=== PATIENT | male | born 1960 | race Caucasian/White ===

== ENCOUNTER 2017-09-30 13:19 | Emergency (ER) | payer OTHER ==
[2017-09-30 13:43] VITALS: RESP 18; TEMP 99.4
[2017-09-30 14:04] LABS: Basophils # (A) 0.1 k/uL (0-0.2); Basophils % (A) 1 %; Eosinophils # (A) 0.2 k/uL (0-0.7); Eosinophils % (A) 3 %; HCT 42.1 % (39.0-53.0); HGB 14.2 gm/dL (13.0-17.5); Lymphocytes # (A) 1.7 k/uL (1.0-4.8); Lymphocytes % (A) 20 %; MCH 35.2 pg (25.0-35.0); MCHC 33.8 g/dL (31.0-37.0); Macrocytosis Slight; Mean Platelet Volume 8.3; Monocytes # (A) 0.3 k/uL (0-1.0); Monocytes % (A) 3 %; Neutrophils # (A) 6.1 k/uL (1.3-7.7); Neutrophils % (A) 72 %; Platelet Count 195 k/uL (150-450); RBC 4.05 m/uL (4.30-5.90); RDW 14.8 % (11.5-15.5); WBC 8.5 k/uL (3.8-10.6)
[2017-09-30 14:15] LABS: ALT 26 U/L (21-72); AST 80 U/L (17-59); Albumin 4.3 g/dL (3.5-5.0); Alkaline Phosphatase 91 U/L (38-126); Anion Gap 11 mmol/L; Blood Urea Nitrogen 6 mg/dL (9-20); Carbon Dioxide 27 mmol/L (22-30); Chloride 108 mmol/L (98-107); Glucose 91 mg/dL (74-99); Sodium 146 mmol/L (137-145); Total Bilirubin 0.6 mg/dL (0.2-1.3); Total Protein 7.4 g/dL (6.3-8.2)
[2017-09-30 14:18] LABS: INR 0.9 (<1.2); Partial Thromboplastin Time 23.4 sec (22.0-30.0); Prothrombin Time 9.4 sec (9.0-12.0)
--- NOTE | 2017-09-30 14:27 | XR ---
EXAMINATION TYPE: XR chest 2V DATE OF EXAM: 09/30/2017 COMPARISON: 01/02/2015 TECHNIQUE: PA and lateral views submitted. HISTORY: Shortness of breath FINDINGS: Hyperinflation suggests COPD and there is a calcified granuloma stable in appearance upper lobe. Rib deformity on the right suggest previous trauma. No overt failure or pneumothorax. No definite consoli dation. Linear changes in the right upper lobe are stable likely in the basis of atelectasis or scar. IMPRESSION: 1. Correlate for COPD.
--- NOTE | 2017-09-30 14:27 | XR ---
EXAMINATION TYPE: XR abdomen 2V DATE OF EXAM: 09/30/2017 HISTORY: Pain. Technique: 3 views of the abdomen are submitted. Comparison: None. Findings: There is no convincing evidence of pneumoperitoneum. The Bowel gas pattern is nonspecific and nonobstructive. No sizable air-fluid levels are seen. No mass effects are noted. No renal calcifications are identified. IMPRESSION: 1. Nonspecific nonobstructive bowel gas pattern
[2017-09-30 14:31] LABS: Alcohol 399 mg/dL
[2017-09-30 14:33] LABS: Creatine Kinase 243 U/L (55-170)
[2017-09-30 14:45] LABS: Creatine Kinase MB 1.1 ng/mL (0.0-2.4); Troponin I <0.012 ng/mL (0.000-0.034)
--- NOTE | 2017-09-30 15:13 | ED ---
Abdominal Pain HPI - General Chief Complaint: Abdominal Pain Stated Complaint: SOB Time Seen by Provider: 09/30/17 14:40 Source: patient, RN notes reviewed Mode of arrival: ambulatory Limitations: no limitations - History of Present Illness Initial Comments: This is a 57-year-old male with a history of gastroesophageal reflux who presents with complaints of shortness of breath and some upper abdominal pain for the past 2 weeks he says he had a cough with green phlegm some chills but he works outside inserted very cold recently. No sweats no fever. He does admit to drinking 6-7 beers per day smokes one half pack cigarettes per day. He generally just does not feel well. MD Complaint: abdominal pain - Related Data Previous Rx's Medication Instructions Recorded Amoxicillin/Potassium Clav 1 tab PO Q12HR #20 tab 09/30/17 [Augmentin 875-125 Tablet] Allergies Allergy/AdvReac Type Severity Reaction Status Date / Time No Known Allergies Allergy Verified 09/30/17 15:18 Review of Systems ROS Statement: Those systems with pertinent positive or pertinent negative responses have been documented in the HPI. ROS Other: All systems not noted in ROS Statement are negative. Past Medical History Past Medical History: Pneumonia History of Any Multi-Drug Resistant Organisms: None Reported Past Surgical History: No Surgical Hx Reported Additional Past Surgical History / Comment(s): RT HAND MIDDLE FINGER SX- BROKE KNUCKLE Past Anesthesia/Blood Transfusion Reactions: No Reported Reaction Past Psychological History: Depression Smoking Status: Current every day smoker Past Alcohol Use History: Daily Past Drug Use History: Marijuana - Past Family History Father Additional Family Medical History / Comment(s): SHINGLES. AGE 88 DON'T KNOW ANY OTHER HS Mother Additional Family Medical History / Comment(s): AGE 95 FROM OLD AGE Sister(s) Family Medical History: Cancer Additional Family Medical History / Comment(s): FROM BREAST CANCER. General Exam - General Exam Comments Initial Comments: This a well-developed well-nourished awake alert oriented times female he does have the smell of alcohol conjoiners on his breath Limitations: no limitations General appearance: alert, in no apparent distress Head exam: Present: atraumatic, normocephalic, normal inspection Eye exam: Present: normal appearance, PERRL, EOMI. Absent: scleral icterus, conjunctival injection, periorbital swelling ENT exam: Present: normal exam, mucous membranes moist Neck exam: Present: normal inspection. Absent: tenderness, meningismus, lymphadenopathy Respiratory exam: Present: decreased breath sounds. Absent: respiratory distress, wheezes, rales, rhonchi, stridor Cardiovascular Exam: Present: regular rate, normal rhythm, normal heart sounds. Absent: systolic murmur, diastolic murmur, rubs, gallop, clicks GI/Abdominal exam: Present: soft, tenderness (Mild epigastric tenderness palpation no guarding rebound masses or bruits), normal bowel sounds. Absent: distended, guarding, rebound, rigid Rectal exam: Present: deferred Extremities exam: Present: normal inspection, full ROM, normal capillary refill. Absent: tenderness, pedal edema, joint swelling, calf tenderness Back exam: Present: normal inspection Neurological exam: Present: alert, oriented X3, CN II-XII intact Psychiatric exam: Present: normal affect, normal mood Skin exam: Present: warm, dry, intact, normal color. Absent: rash Course Vital Signs 09/30/17 09/30/17 13:38 15:10 Temperature 99.4 F Pulse Rate 97 90 Respiratory 18 18 Rate Blood Pressure 153/91 159/92 O2 Sat by Pulse 98 98 Oximetry - Reevaluation(s) Reevaluation #1: 09/30/17 16:22 The patient does not want to stay in hospital he does have a ride home. He is again awake alert oriented [address] with no difficulty whatsoever. Medical Decision Making - Medical Decision Making Patient was able ambulate around the emergency department without any difficulty and he did leave it was brought back. He is awake alert oriented 3 no focal deficits. He is very cognizant of everything going on around him. Patient doesn't want to stay in the hospital patient will be discharged with a prescription for antibiotics. He was cautioned about smoking and drinking. He did later admit that he had a recent couple shots this morning. - Lab Data Result diagrams: 09/30/17 13:46 09/30/17 13:46 Lab Results 09/30/17 09/30/17 09/30/17 Range/Units 13:46 13:46 13:46 WBC 8.5 (3.8-10.6) k/uL RBC 4.05 L (4.30-5.90) m/uL Hgb 14.2 (13.0-17.5) gm/dL Hct 42.1 (39.0-53.0) % MCV 104.0 H (80.0-100.0) fL MCH 35.2 H (25.0-35.0) pg MCHC 33.8 (31.0-37.0) g/dL RDW 14.8 (11.5-15.5) % Plt Count 195 (150-450) k/uL Neutrophils % 72 % Lymphocytes % 20 % Monocytes % 3 % Eosinophils % 3 % Basophils % 1 % Neutrophils # 6.1 (1.3-7.7) k/uL Lymphocytes # 1.7 (1.0-4.8) k/uL Monocytes # 0.3 (0-1.0) k/uL Eosinophils # 0.2 (0-0.7) k/uL Basophils # 0.1 (0-0.2) k/uL Macrocytosis Slight PT (9.0-12.0) sec INR (<1.2) APTT (22.0-30.0) sec Sodium 146 H (137-145) mmol/L Potassium 4.0 (3.5-5.1) mmol/L Chloride 108 H (98-107) mmol/L Carbon Dioxide 27 (22-30) mmol/L Anion Gap 11 mmol/L BUN 6 L (9-20) mg/dL Creatinine 0.74 (0.66-1.25) mg/dL Est GFR (MDRD) Af Amer >60 (>60 ml/min/1.73 sqM) Est GFR (MDRD) Non-Af >60 (>60 ml/min/1.73 sqM) Glucose 91 (74-99) mg/dL Plasma Lactic Acid Kodi (0.7-2.0) mmol/L Calcium 9.0 (8.4-10.2) mg/dL Total Bilirubin 0.6 (0.2-1.3) mg/dL AST 80 H (17-59) U/L ALT 26 (21-72) U/L Alkaline Phosphatase 91 (38-126) U/L Total Creatine Kinase 243 H (55-170) U/L CK-MB (CK-2) 1.1 (0.0-2.4) ng/mL CK-MB (CK-2) Rel Index 0.5 Troponin I <0.012 (0.000-0.034) ng/mL Total Protein 7.4 (6.3-8.2) g/dL Albumin 4.3 (3.5-5.0) g/dL Amylase (30-110) U/L Lipase (23-300) U/L Serum Alcohol 399 mg/dL Influenza Type A RNA (Not Detectd) Influenza Type B (PCR) (Not Detectd) 09/30/17 09/30/17 09/30/17 Range/Units 13:46 13:46 13:46 WBC (3.8-10.6) k/uL RBC (4.30-5.90) m/uL Hgb (13.0-17.5) gm/dL Hct (39.0-53.0) % MCV (80.0-100.0) fL MCH (25.0-35.0) pg MCHC (31.0-37.0) g/dL RDW (11.5-15.5) % Plt Count (150-450) k/uL Neutrophils % % Lymphocytes % % Monocytes % % Eosinophils % % Basophils % % Neutrophils # (1.3-7.7) k/uL Lymphocytes # (1.0-4.8) k/uL Monocytes # (0-1.0) k/uL Eosinophils # (0-0.7) k/uL Basophils # (0-0.2) k/uL Macrocytosis PT 9.4 (9.0-12.0) sec INR 0.9 (<1.2) APTT 23.4 (22.0-30.0) sec Sodium (137-145) mmol/L Potassium (3.5-5.1) mmol/L Chloride (98-107) mmol/L Carbon Dioxide (22-30) mmol/L Anion Gap mmol/L BUN (9-20) mg/dL Creatinine (0.66-1.25) mg/dL Est GFR (MDRD) Af Amer (>60 ml/min/1.73 sqM) Est GFR (MDRD) Non-Af (>60 ml/min/1.73 sqM) Glucose (74-99) mg/dL Plasma Lactic Acid Kodi 1.3 (0.7-2.0) mmol/L Calcium (8.4-10.2) mg/dL Total Bilirubin (0.2-1.3) mg/dL AST (17-59) U/L ALT (21-72) U/L Alkaline Phosphatase (38-126) U/L Total Creatine Kinase (55-170) U/L CK-MB (CK-2) (0.0-2.4) ng/mL CK-MB (CK-2) Rel Index Troponin I (0.000-0.034) ng/mL Total Protein (6.3-8.2) g/dL Albumin (3.5-5.0) g/dL Amylase (30-110) U/L Lipase (23-300) U/L Serum Alcohol mg/dL Influenza Type A RNA Not Detected (Not Detectd) Influenza Type B (PCR) Not Detected (Not Detectd) 09/30/17 Range/Units 13:46 WBC (3.8-10.6) k/uL RBC (4.30-5.90) m/uL Hgb (13.0-17.5) gm/dL Hct (39.0-53.0) % MCV (80.0-100.0) fL MCH (25.0-35.0) pg MCHC (31.0-37.0) g/dL RDW (11.5-15.5) % Plt Count (150-450) k/uL Neutrophils % % Lymphocytes % % Monocytes % % Eosinophils % % Basophils % % Neutrophils # (1.3-7.7) k/uL Lymphocytes # (1.0-4.8) k/uL Monocytes # (0-1.0) k/uL Eosinophils # (0-0.7) k/uL Basophils # (0-0.2) k/uL Macrocytosis PT (9.0-12.0) sec INR (<1.2) APTT (22.0-30.0) sec Sodium (137-145) mmol/L Potassium (3.5-5.1) mmol/L Chloride (98-107) mmol/L Carbon Dioxide (22-30) mmol/L Anion Gap mmol/L BUN (9-20) mg/dL Creatinine (0.66-1.25) mg/dL Est GFR (MDRD) Af Amer (>60 ml/min/1.73 sqM) Est GFR (MDRD) Non-Af (>60 ml/min/1.73 sqM) Glucose (74-99) mg/dL Plasma Lactic Acid Kdoi (0.7-2.0) mmol/L Calcium (8.4-10.2) mg/dL Total Bilirubin (0.2-1.3) mg/dL AST (17-59) U/L ALT (21-72) U/L Alkaline Phosphatase (38-126) U/L Total Creatine Kinase (55-170) U/L CK-MB (CK-2) (0.0-2.4) ng/mL CK-MB (CK-2) Rel Index Troponin I (0.000-0.034) ng/mL Total Protein (6.3-8.2) g/dL Albumin (3.5-5.0) g/dL Amylase 80 (30-110) U/L Lipase 144 (23-300) U/L Serum Alcohol mg/dL Influenza Type A RNA (Not Detectd) Influenza Type B (PCR) (Not Detectd) - Radiology Data Radiology results: report reviewed (I did review the imaging and reports no acute findings.), image reviewed Disposition Clinical Impression: Tracheobronchitis, Alcohol abuse Disposition: HOME SELF-CARE Condition: Good Instructions: Acute Bronchitis (ED) Prescriptions: Amoxicillin/Potassium Clav [Augmentin 875-125 Tablet] 1 tab PO Q12HR #20 tab Referrals: None,Stated [Primary Care Provider] - 1-2 days
[2017-09-30 15:20] LABS: Amylase 80 U/L (30-110); Lipase 144 U/L (23-300)
[2017-09-30] MEDS ORDERED: AMOXIC-POT CLAV 875MG STARTER 2 EACH TABLET PO STA (16:21)
--- NOTE | 2017-09-30 16:23 | ED ---
Medical Decision Making - Lab Data Result diagrams: 09/30/17 13:46 09/30/17 13:46 Lab Results 09/30/17 09/30/17 09/30/17 Range/Units 13:46 13:46 13:46 WBC 8.5 (3.8-10.6) k/uL RBC 4.05 L (4.30-5.90) m/uL Hgb 14.2 (13.0-17.5) gm/dL Hct 42.1 (39.0-53.0) % MCV 104.0 H (80.0-100.0) fL MCH 35.2 H (25.0-35.0) pg MCHC 33.8 (31.0-37.0) g/dL RDW 14.8 (11.5-15.5) % Plt Count 195 (150-450) k/uL Neutrophils % 72 % Lymphocytes % 20 % Monocytes % 3 % Eosinophils % 3 % Basophils % 1 % Neutrophils # 6.1 (1.3-7.7) k/uL Lymphocytes # 1.7 (1.0-4.8) k/uL Monocytes # 0.3 (0-1.0) k/uL Eosinophils # 0.2 (0-0.7) k/uL Basophils # 0.1 (0-0.2) k/uL Macrocytosis Slight PT (9.0-12.0) sec INR (<1.2) APTT (22.0-30.0) sec Sodium 146 H (137-145) mmol/L Potassium 4.0 (3.5-5.1) mmol/L Chloride 108 H (98-107) mmol/L Carbon Dioxide 27 (22-30) mmol/L Anion Gap 11 mmol/L BUN 6 L (9-20) mg/dL Creatinine 0.74 (0.66-1.25) mg/dL Est GFR (MDRD) Af Amer >60 (>60 ml/min/1.73 sqM) Est GFR (MDRD) Non-Af >60 (>60 ml/min/1.73 sqM) Glucose 91 (74-99) mg/dL Plasma Lactic Acid Kodi (0.7-2.0) mmol/L Calcium 9.0 (8.4-10.2) mg/dL Total Bilirubin 0.6 (0.2-1.3) mg/dL AST 80 H (17-59) U/L ALT 26 (21-72) U/L Alkaline Phosphatase 91 (38-126) U/L Total Creatine Kinase 243 H (55-170) U/L CK-MB (CK-2) 1.1 (0.0-2.4) ng/mL CK-MB (CK-2) Rel Index 0.5 Troponin I <0.012 (0.000-0.034) ng/mL Total Protein 7.4 (6.3-8.2) g/dL Albumin 4.3 (3.5-5.0) g/dL Amylase (30-110) U/L Lipase (23-300) U/L Serum Alcohol 399 mg/dL Influenza Type A RNA (Not Detectd) Influenza Type B (PCR) (Not Detectd) 09/30/17 09/30/17 09/30/17 Range/Units 13:46 13:46 13:46 WBC (3.8-10.6) k/uL RBC (4.30-5.90) m/uL Hgb (13.0-17.5) gm/dL Hct (39.0-53.0) % MCV (80.0-100.0) fL MCH (25.0-35.0) pg MCHC (31.0-37.0) g/dL RDW (11.5-15.5) % Plt Count (150-450) k/uL Neutrophils % % Lymphocytes % % Monocytes % % Eosinophils % % Basophils % % Neutrophils # (1.3-7.7) k/uL Lymphocytes # (1.0-4.8) k/uL Monocytes # (0-1.0) k/uL Eosinophils # (0-0.7) k/uL Basophils # (0-0.2) k/uL Macrocytosis PT 9.4 (9.0-12.0) sec INR 0.9 (<1.2) APTT 23.4 (22.0-30.0) sec Sodium (137-145) mmol/L Potassium (3.5-5.1) mmol/L Chloride (98-107) mmol/L Carbon Dioxide (22-30) mmol/L Anion Gap mmol/L BUN (9-20) mg/dL Creatinine (0.66-1.25) mg/dL Est GFR (MDRD) Af Amer (>60 ml/min/1.73 sqM) Est GFR (MDRD) Non-Af (>60 ml/min/1.73 sqM) Glucose (74-99) mg/dL Plasma Lactic Acid Kodi 1.3 (0.7-2.0) mmol/L Calcium (8.4-10.2) mg/dL Total Bilirubin (0.2-1.3) mg/dL AST (17-59) U/L ALT (21-72) U/L Alkaline Phosphatase (38-126) U/L Total Creatine Kinase (55-170) U/L CK-MB (CK-2) (0.0-2.4) ng/mL CK-MB (CK-2) Rel Index Troponin I (0.000-0.034) ng/mL Total Protein (6.3-8.2) g/dL Albumin (3.5-5.0) g/dL Amylase (30-110) U/L Lipase (23-300) U/L Serum Alcohol mg/dL Influenza Type A RNA Not Detected (Not Detectd) Influenza Type B (PCR) Not Detected (Not Detectd) 09/30/17 Range/Units 13:46 WBC (3.8-10.6) k/uL RBC (4.30-5.90) m/uL Hgb (13.0-17.5) gm/dL Hct (39.0-53.0) % MCV (80.0-100.0) fL MCH (25.0-35.0) pg MCHC (31.0-37.0) g/dL RDW (11.5-15.5) % Plt Count (150-450) k/uL Neutrophils % % Lymphocytes % % Monocytes % % Eosinophils % % Basophils % % Neutrophils # (1.3-7.7) k/uL Lymphocytes # (1.0-4.8) k/uL Monocytes # (0-1.0) k/uL Eosinophils # (0-0.7) k/uL Basophils # (0-0.2) k/uL Macrocytosis PT (9.0-12.0) sec INR (<1.2) APTT (22.0-30.0) sec Sodium (137-145) mmol/L Potassium (3.5-5.1) mmol/L Chloride (98-107) mmol/L Carbon Dioxide (22-30) mmol/L Anion Gap mmol/L BUN (9-20) mg/dL Creatinine (0.66-1.25) mg/dL Est GFR (MDRD) Af Amer (>60 ml/min/1.73 sqM) Est GFR (MDRD) Non-Af (>60 ml/min/1.73 sqM) Glucose (74-99) mg/dL Plasma Lactic Acid Kodi (0.7-2.0) mmol/L Calcium (8.4-10.2) mg/dL Total Bilirubin (0.2-1.3) mg/dL AST (17-59) U/L ALT (21-72) U/L Alkaline Phosphatase (38-126) U/L Total Creatine Kinase (55-170) U/L CK-MB (CK-2) (0.0-2.4) ng/mL CK-MB (CK-2) Rel Index Troponin I (0.000-0.034) ng/mL Total Protein (6.3-8.2) g/dL Albumin (3.5-5.0) g/dL Amylase 80 (30-110) U/L Lipase 144 (23-300) U/L Serum Alcohol mg/dL Influenza Type A RNA (Not Detectd) Influenza Type B (PCR) (Not Detectd) Disposition Clinical Impression: Tracheobronchitis, Alcohol abuse Disposition: HOME SELF-CARE Condition: Good Instructions: Acute Bronchitis (ED), Alcohol Use Disorder (ED), Alcohol Dependence (ED) Prescriptions: Amoxicillin/Potassium Clav [Augmentin 875-125 Tablet] 1 tab PO Q12HR #20 tab Referrals: None,Stated [Primary Care Provider] - 1-2 days
[2017-09-30 17:05] VITALS: BP 145/89; PULSE 94
== END 2017-09-30 17:02 | disposition home or self-care (01) ==
LOC: EC 13:19
DX: J40 Bronchitis, not specified as acute or chronic (principal); F10.10 Alcohol abuse, uncomplicated; R10.13 Epigastric pain; F17.210 Nicotine dependence, cigarettes, uncomplicated
CPT/HCPCS: 36415; 71046; 74019; 80053; 80320; 82150; 82550; 82553; 83605; 83690; 84484; 85025; 85610; 85730; 87040; 87502; 99284

== ENCOUNTER 2017-10-07 12:16 | Emergency (ER) | payer OTHER ==
[2017-10-07 12:33] VITALS: RESP 18
[2017-10-07] MEDS ORDERED: SODIUM CHLORIDE 0.9% 500 ML IV STA (14:35)
--- NOTE | 2017-10-07 14:43 | ED ---
General Adult HPI - General Chief complaint: Abdominal Pain Stated complaint: Abd Pain Time Seen by Provider: 10/07/17 14:00 Source: patient, RN notes reviewed Mode of arrival: ambulatory Limitations: no limitations - History of Present Illness Initial comments: This a 57-year-old male who presents to the emergency department with a past medical history significant for alcoholism and smoking. Patient comes in today stating his abdomen has been painful for one week. Patient states is diffusely painful. Patient states occasionally he will vomit especially if he eats food. Patient states he has had a couple bouts of diarrhea but is not constant. Patient denies any fever chills per patient denies any chest pain difficulty breathing or shortness of breath. Patient states he has yet to vomit today. Patient states he continues to drink but he doesn't think he is drinking as much as he normally does. Patient denies any headache patient denies lightheadedness dizziness or near syncopal episode. Patient denies any dysuria hematuria urinary freaky. Patient denies any recent injury or trauma. - Related Data Previous Rx's Medication Instructions Recorded Amoxicillin/Potassium Clav 1 tab PO Q12HR #20 tab 09/30/17 [Augmentin 875-125 Tablet] Allergies Allergy/AdvReac Type Severity Reaction Status Date / Time No Known Allergies Allergy Verified 10/07/17 14:34 Review of Systems ROS Statement: Those systems with pertinent positive or pertinent negative responses have been documented in the HPI. ROS Other: All systems not noted in ROS Statement are negative. Past Medical History Past Medical History: No Reported History History of Any Multi-Drug Resistant Organisms: None Reported Past Surgical History: No Surgical Hx Reported Additional Past Surgical History / Comment(s): RT HAND MIDDLE FINGER SX- BROKE KNUCKLE Past Anesthesia/Blood Transfusion Reactions: No Reported Reaction Past Psychological History: Depression Smoking Status: Current every day smoker Past Alcohol Use History: Daily Past Drug Use History: Marijuana - Past Family History Father Additional Family Medical History / Comment(s): SHINGLES. AGE 88 DON'T KNOW ANY OTHER HS Mother Additional Family Medical History / Comment(s): AGE 95 FROM OLD AGE Sister(s) Family Medical History: Cancer Additional Family Medical History / Comment(s): FROM BREAST CANCER. General Exam - General Exam Comments Initial Comments: GENERAL: Patient is well-developed and well-nourished. Patient is nontoxic and well- hydrated and is in mild distress. ENT: Neck is soft and supple. No significant lymphadenopathy is noted. Oropharynx is clear. Moist mucous membranes. Neck has full range of motion without eliciting any pain. EYES: The sclera were anicteric and conjunctiva were pink and moist. Extraocular movements were intact and pupils were equal round and reactive to light. Eyelids were unremarkable. PULMONARY: Unlabored respirations. Good breath sounds bilaterally. No audible rales rhonchi or wheezing was noted. CARDIOVASCULAR: There is a regular rate and rhythm without any murmurs gallops or rubs. ABDOMEN: Soft and nontender with normal bowel sounds. No palpable organomegaly was noted. There is no palpable pulsatile mass. SKIN: Skin is clear with no lesions or rashes and otherwise unremarkable. NEUROLOGIC: Patient is alert and oriented x3. Cranial nerves II through XII are grossly intact. Motor and sensory are also intact. Normal speech, volume and content. Symmetrical smile. MUSCULOSKELETAL: Normal extremities with adequate strength and full range of motion. No lower extremity swelling or edema. No calf tenderness. LYMPHATICS: No significant lymphadenopathy is noted PSYCHIATRIC: Normal psychiatric evaluation. Limitations: no limitations Course Vital Signs 10/07/17 10/07/17 10/07/17 12:30 13:51 14:58 Temperature 98 F 97.9 F 98.0 F Pulse Rate 90 71 70 Respiratory 18 18 18 Rate Blood Pressure 173/103 161/110 190/102 O2 Sat by Pulse 97 98 96 Oximetry 10/07/17 17:06 Temperature 97.9 F Pulse Rate 78 Respiratory 18 Rate Blood Pressure 177/110 O2 Sat by Pulse 99 Oximetry Medical Decision Making - Medical Decision Making I went back into the room to reevaluate the patient patient's abdomen was nontender he was resting comfortably reading a book. This is brother will come pick him up. Patient will follow-up with a primary medical care doctor as instructed. - Lab Data Result diagrams: 10/07/17 14:50 10/07/17 14:50 Lab Results 10/07/17 10/07/17 10/07/17 Range/Units 14:50 14:50 14:50 WBC 3.9 (3.8-10.6) k/uL RBC 3.89 L (4.30-5.90) m/uL Hgb 13.7 (13.0-17.5) gm/dL Hct 39.1 (39.0-53.0) % MCV 100.5 H (80.0-100.0) fL MCH 35.1 H (25.0-35.0) pg MCHC 35.0 (31.0-37.0) g/dL RDW 13.5 (11.5-15.5) % Plt Count 61 L D (150-450) k/uL Neutrophils % 50 % Lymphocytes % 40 % Monocytes % 4 % Eosinophils % 2 % Basophils % 1 % Neutrophils # 1.9 (1.3-7.7) k/uL Lymphocytes # 1.5 (1.0-4.8) k/uL Monocytes # 0.2 (0-1.0) k/uL Eosinophils # 0.1 (0-0.7) k/uL Basophils # 0.0 (0-0.2) k/uL Sodium 137 (137-145) mmol/L Potassium 3.7 (3.5-5.1) mmol/L Chloride 98 (98-107) mmol/L Carbon Dioxide 27 (22-30) mmol/L Anion Gap 12 mmol/L BUN 6 L (9-20) mg/dL Creatinine 0.70 (0.66-1.25) mg/dL Est GFR (MDRD) Af Amer >60 (>60 ml/min/1.73 sqM) Est GFR (MDRD) Non-Af >60 (>60 ml/min/1.73 sqM) Glucose 96 (74-99) mg/dL Calcium 9.0 (8.4-10.2) mg/dL Magnesium 1.2 L (1.6-2.3) mg/dL Total Bilirubin 1.1 (0.2-1.3) mg/dL AST 99 H (17-59) U/L ALT 21 (21-72) U/L Alkaline Phosphatase 102 (38-126) U/L Total Protein 7.6 (6.3-8.2) g/dL Albumin 4.3 (3.5-5.0) g/dL Amylase 88 (30-110) U/L Lipase 237 (23-300) U/L Urine Color Yellow Urine Appearance Clear (Clear) Urine pH 6.0 (5.0-8.0) Ur Specific Mcdowell 1.009 (1.001-1.035) Urine Protein Trace H (Negative) Urine Glucose (UA) Negative (Negative) Urine Ketones Negative (Negative) Urine Blood Negative (Negative) Urine Nitrite Negative (Negative) Urine Bilirubin Negative (Negative) Urine Urobilinogen <2.0 (<2.0) mg/dL Ur Leukocyte Esterase Negative (Negative) Serum Alcohol 200 mg/dL Disposition Clinical Impression: Abdominal pain, Alcohol abuse, Thrombocytopenia, Hypertension Disposition: HOME SELF-CARE Condition: Good Instructions: Abdominal Pain (ED), Hypertension (ED) Additional Instructions: Patient is to stop drinking. Patient is to follow-up with primary medical care doctor. Patient should follow -up so he can get an endoscopy. Referrals: None,Stated [Primary Care Provider] - 1-2 days Time of Disposition: 16:47
[2017-10-07 15:14] LABS: Appearance,Urine Clear (Clear); Bilirubin,Urine Negative (Negative); Blood,Urine Negative (Negative); Color,Urine Yellow; Glucose,Urine (UA) Negative (Negative); Ketones,Urine Negative (Negative); Leukocyte Esterase,Urine Negative (Negative); Nitrite,Urine Negative (Negative); Protein,Urine Trace (Negative); Specific Gravity,Urine 1.009 (1.001-1.035); Urobilinogen,Urine <2.0 mg/dL (<2.0)
[2017-10-07 15:24] LABS: ALT 21 U/L (21-72); AST 99 U/L (17-59); Albumin 4.3 g/dL (3.5-5.0); Alkaline Phosphatase 102 U/L (38-126); Amylase 88 U/L (30-110); Anion Gap 12 mmol/L; Blood Urea Nitrogen 6 mg/dL (9-20); Carbon Dioxide 27 mmol/L (22-30); Chloride 98 mmol/L (98-107); Glucose 96 mg/dL (74-99); Magnesium 1.2 mg/dL (1.6-2.3); Potassium 3.7 mmol/L (3.5-5.1); Sodium 137 mmol/L (137-145); Total Bilirubin 1.1 mg/dL (0.2-1.3); Total Protein 7.6 g/dL (6.3-8.2)
[2017-10-07 15:25] LABS: Basophils % (A) 1 %; Eosinophils # (A) 0.1 k/uL (0-0.7); Eosinophils % (A) 2 %; HCT 39.1 % (39.0-53.0); HGB 13.7 gm/dL (13.0-17.5); Lymphocytes # (A) 1.5 k/uL (1.0-4.8); Lymphocytes % (A) 40 %; MCH 35.1 pg (25.0-35.0); MCV 100.5 fL (80.0-100.0); Mean Platelet Volume 8.5; Monocytes # (A) 0.2 k/uL (0-1.0); Monocytes % (A) 4 %; Neutrophils # (A) 1.9 k/uL (1.3-7.7); Neutrophils % (A) 50 %; RBC 3.89 m/uL (4.30-5.90); RDW 13.5 % (11.5-15.5); WBC 3.9 k/uL (3.8-10.6)
[2017-10-07 15:29] LABS: Alcohol 200 mg/dL
[2017-10-07 15:39] LABS: Platelet Count 61 k/uL (150-450)
[2017-10-07 15:48] LABS: Lipase 237 U/L (23-300)
[2017-10-07] MEDS ORDERED: hydrALAZINE HCL 20 MG/ML 1 ML VIAL IVP STA (17:05)
[2017-10-07 17:07] VITALS: PULSE 78; TEMP 97.9
--- NOTE | 2017-10-07 17:08 | XR ---
EXAMINATION TYPE: XR KUB DATE OF EXAM: 10/07/2017 COMPARISON: 09/30/2017 INDICATION: Abdomen pain mid abdomen 1 week TECHNIQUE: Single view abdomen upright view FINDINGS: There is a nonspecific bowel gas pattern. Small bowel loops as well as colon containing air. No suspi cious air-fluid levels or differential air-fluid levels are present. No dilated small bowel loops are evident. Psoas margins are normal. No organomegaly is present. No suspicious calcifications are evident. COMPARISON: There is minimal increased in the small bowel gas compared to prior study IMPRESSION: 1. Nonspecific abdomen.
[2017-10-07 17:30] VITALS: BP 176/93
== END 2017-10-07 17:56 | disposition home or self-care (01) ==
LOC: EC 12:16
DX: R10.84 Generalized abdominal pain (principal); D69.6 Thrombocytopenia, unspecified; F10.10 Alcohol abuse, uncomplicated; I10 Essential (primary) hypertension; R11.10 Vomiting, unspecified; R19.7 Diarrhea, unspecified; F17.200 Nicotine dependence, unspecified, uncomplicated
CPT/HCPCS: 36415; 80053; 82150; 83690; 83735; 85025; 81003; 80320; 74018; 99284; 96374; 96361; J0360

== ENCOUNTER 2018-03-18 23:17 | Emergency (ER) | payer OTHER ==
[2018-03-18 23:50] VITALS: RESP 18
--- NOTE | 2018-03-18 23:52 | ED ---
Fall HPI - General Source: patient, EMS, RN notes reviewed Mode of arrival: EMS Limitations: no limitations <Joslyn Weber - Last Filed: 03/19/18 03:29> <Greg Zabala - Last Filed: 03/19/18 04:10> - General Chief Complaint: Fall Stated Complaint: Fall Time Seen by Provider: 03/18/18 23:25 - History of Present Illness Initial Comments: This is a 57-year-old male who presents to the emergency department with chief complaint of fall injury. Patient states that he was walking on a back road when he tripped once and fell hitting his face. He denies any loss of consciousness, nausea or vomiting, dizziness or headache. Patient does admit to drinking 6 large beers this evening. He denies blood thinner use. He also reports abrasions to his hands in his right elbow. He states he has normal range of motion of all extremities. Patient states that a bystander called EMS and he was transported to the emergency department. Patient denies any other injuries or trauma. (Joslyn Weber) - Related Data Home Medications Medication Instructions Recorded Confirmed No Known Home Medications 03/18/18 03/18/18 Allergies Allergy/AdvReac Type Severity Reaction Status Date / Time No Known Allergies Allergy Verified 03/18/18 23:26 Review of Systems ROS Other: All systems not noted in ROS Statement are negative. <Joslyn Weber - Last Filed: 03/19/18 03:29> ROS Other: All systems not noted in ROS Statement are negative. <Greg Zabala - Last Filed: 03/19/18 04:10> ROS Statement: Those systems with pertinent positive or pertinent negative responses have been documented in the HPI. Past Medical History Past Medical History: No Reported History History of Any Multi-Drug Resistant Organisms: None Reported Past Surgical History: No Surgical Hx Reported Additional Past Surgical History / Comment(s): RT HAND MIDDLE FINGER SX- BROKE KNUCKLE Past Anesthesia/Blood Transfusion Reactions: No Reported Reaction Past Psychological History: Depression Smoking Status: Current every day smoker Past Alcohol Use History: Daily Past Drug Use History: Marijuana - Past Family History Father Additional Family Medical History / Comment(s): SHINGLES. AGE 88 DON'T KNOW ANY OTHER HS Mother Additional Family Medical History / Comment(s): AGE 95 FROM OLD AGE Sister(s) Family Medical History: Cancer Additional Family Medical History / Comment(s): FROM BREAST CANCER. <Joslyn Weber - Last Filed: 03/19/18 03:29> General Exam Limitations: no limitations <Joslyn Weber - Last Filed: 03/19/18 03:29> <Greg Zabala - Last Filed: 03/19/18 04:10> - General Exam Comments Initial Comments: General: Awake and alert, well-developed; in no apparent distress. HEENT: 2 hematomas noted to the forehead, one mid forehead and one right supraorbital. There is an approximately 1.0 cm linear laceration just superior to the lateral aspect of the left eyebrow. Pupils are equal, round and reactive to light. Extraocular movements intact. Oropharynx moist without erythema or exudate. Neck: Supple. Normal ROM. Cardiovascular: Regular rate and rhythm. No murmurs, rubs or gallops. Chest symmetrical. Respiratory: Lungs clear to auscultation bilaterally. No wheezes, rales or rhonchi. Normal respiratory effort with no use of accessory muscles. Musculoskeletal: Normal ROM, no tenderness bilateral upper and lower extremities. Skin: [place], warm and dry. Superficial abrasion noted to the knuckles on the right hand and to the right elbow. Neurological: Alert and oriented x3. CN II-XII grossly intact. Speech is fluent and answers are appropriate. No focal neuro deficits. (Joslyn Weber) Course <Joslyn Weber - Last Filed: 03/19/18 03:29> <Greg Zabala - Last Filed: 03/19/18 04:10> Vital Signs 03/18/18 03/19/18 03/19/18 23:27 00:57 02:35 Temperature 98.1 F 97.4 F L Pulse Rate 70 65 58 L Respiratory 18 18 18 Rate Blood Pressure 150/91 105/57 132/77 O2 Sat by Pulse 97 97 100 Oximetry - Reevaluation(s) Reevaluation #1: At this time, patient complains of right-sided chest pain. On palpation of the right anterior ribs, there is tenderness elicited. Will obtain an EKG and chest x-ray for further evaluation. 03/19/18 02:46 (Joslyn Weber) Reevaluation #2: 03/19/18 03:30 At this time, patient is resting comfortably in bed. Case will be signed over to Dr. Zabala. (Joslyn Weber) Procedures - Laceration Laceration #1 Consent Obtained: verbal consent Indication: laceration Site: face (superior to lateral left eyebrow ) Size (cm): 1 Description: linear Depth: simple, single layer Pre-repair: irrigated extensively, deep structures intact Type of Sutures: other (exofin ) Patient Tolerated Procedure: well, no complications <Joslyn Weber - Last Filed: 03/19/18 03:29> Medical Decision Making - Radiology Data Radiology results: report reviewed, image reviewed <Joslyn Weber - Last Filed: 03/19/18 03:29> <Greg Zabala - Last Filed: 03/19/18 04:10> - Medical Decision Making This is a 57-year-old male who presents to the emergency department with chief complaint of fall injury. Patient was intoxicated, tripped and fell. Patient sustained soft tissue swelling to his frontal scalp, a non-displaced nasal bone fracture and a laceration superior to the left eyebrow. Laceration was cleansed thoroughly and exofin skin adhesive was applied. Patient tolerated well. Patient also sustained abrasions to knuckles and his right elbow. He has normal range of motion of bilateral upper and lower extremities. Computed tomography scan of the brain and C-spine revealed no acute abnormalities. While in the emergency department, patient complained of some right-sided chest pain. Right anterior ribs are tender on palpation. EKG was obtained which revealed normal sinus rhythm without evidence of ST segment elevation or depression. (Joslyn Weber) - EKG Data EKG Comments: 3:13:46. Normal sinus rhythm. Ventricular rate 64 bpm, OK interval 206, QRS duration 80, QT/QTc 440/453. No ST segment elevation or depression. (Jolsyn Weber) - Radiology Data CT brain and C-spine without contrast impression: Cerebral atrophy. No acute intracranial abnormality. Right side soft tissue swelling. Spine no other changes in the cervical spine. No fracture. CT facial bones without contrast impression: Right and left side frontal scalp soft tissue swelling and laceration. Non-displaced nasal bone fracture. Mild maxillary sinusitis. Chest x-ray impression: No active cardiopulmonary disease. Normal heart. (Joslyn Weber) Disposition <Joslyn Weber - Last Filed: 03/19/18 03:29> Is patient prescribed a controlled substance at d/c from ED?: No <Greg Zabala - Last Filed: 03/19/18 04:10> Clinical Impression: Fall, Nasal fracture, Facial laceration, Alcohol intoxication Disposition: HOME SELF-CARE Condition: Good Instructions: Fall Prevention for Older Adults (ED) Referrals: None,Stated [Primary Care Provider] - 1-2 days
--- NOTE | 2018-03-19 00:48 | CT ---
EXAMINATION TYPE: CT brain yg bliss DATE OF EXAM: 03/19/2018 COMPARISON: Head CT scan 01/02/2015 HISTORY: fall CT DLP: 1422.00 mGycm Automated exposure control for dose reduction was used. TECHNIQUE: CT scan of the head and cervical spine are performed without contrast. FINDINGS: There is some cerebral cortical atrophy. There is no mass effect nor midline shift. There is no sign of intracranial hemorrhage. There is right frontal skull Alps soft tissue swelling. The c alvarium is intact. There is some spurring of the endplates at C5-6 C6-7. There is fairly normal alignment of the vertebr a. There is hypertrophic facet arthropathy in the mid cervical spine. The skull base is intact. There is no compression fracture. I see no bony destructive process. IMPRESSION: Cerebral atrophy. No acute intracranial abnormality. Right side soft tissue swelling. Spondylotic changes in the cervical spine. No fracture.
--- NOTE | 2018-03-19 00:50 | CT ---
EXAMINATION TYPE: CT facial bones wo con DATE OF EXAM: 03/19/2018 COMPARISON: HISTORY: fall CT DLP: 624.20 mGycm Automated exposure control for dose reduction was used. TECHNIQUE: CT scan of the sinuses is performed without contrast, axial images are obtained, coronal r eformatted images are also reviewed. FINDINGS: The mandibular ring is intact. Temporomandibular joints appear normal. Zygomatic arches are intact. There is some deformity of the nasal bone consistent with nondisplaced fracture. There is mi ld mucosal thickening in the maxillary sinuses. There is no evidence of blowout fracture. Orbital mar gins are intact. There is no evidence of retro-orbital mass. There is right side frontal soft tissue swelling. There is apparent laceration deformity of the left frontal scalp. The maxilla is intact. IMPRESSION: Right and left side frontal scalp soft tissue swelling and laceration. Nondisplaced nasal bone fracture. Mild maxillary sinusitis.
[2018-03-19] MEDS ORDERED: DIPH,PERTUS(ACELL)TETVAC-LF 0.5 ML VIAL IM ONE (01:00)
[2018-03-19] MEDS ORDERED: TOPICAL SKIN ADHESIVE 1 EACH AMP TOPICAL ONE (02:17)
--- NOTE | 2018-03-19 03:16 | XR ---
EXAMINATION TYPE: XR chest 2V DATE OF EXAM: 03/19/2018 COMPARISON: 09/30/2017 HISTORY: Chest pain TECHNIQUE: Frontal and lateral views of the chest are obtained. FINDINGS: There is no heart failure nor confluent pneumonic infiltrate. There is 5 mm calcified gran uloma in the left lung. There is no pleural effusion. Bony thorax is intact. IMPRESSION: No active cardiopulmonary disease. Normal heart.
[2018-03-19 05:36] VITALS: BP 107/64; PULSE 64; TEMP 97.5
== END 2018-03-19 05:38 | disposition home or self-care (01) ==
LOC: EC 23:17
DX: S02.2XXA Fracture of nasal bones, initial encounter for closed fracture (principal); S01.81XA Laceration without foreign body of other part of head, initial encounter; F10.129 Alcohol abuse with intoxication, unspecified; S00.83XA Contusion of other part of head, initial encounter; S60.511A Abrasion of right hand, initial encounter; S50.311A Abrasion of right elbow, initial encounter; G31.9 Degenerative disease of nervous system, unspecified; J32.0 Chronic maxillary sinusitis; R07.9 Chest pain, unspecified; F17.200 Nicotine dependence, unspecified, uncomplicated; Z98.890 Other specified postprocedural states; Z23 Encounter for immunization; W01.0XXA Fall on same level from slipping, tripping and stumbling without subsequent striking against object, initial encounter; Y93.01 Activity, walking, marching and hiking; Y92.488 Other paved roadways as the place of occurrence of the external cause
CPT/HCPCS: 12011; 70450; 70486; 71046; 72125; 82075; 90471; 90715; 93005; 99284

== ENCOUNTER 2020-08-20 01:53 | Observation (INO) | payer OTHER ==
[2020-08-20] MEDS ORDERED: SODIUM CHLORIDE 0.9% 1,000 ML IV STA (02:04)
[2020-08-20] MEDS ORDERED: hydrALAZINE HCL 20 MG/ML 1 ML VIAL IVP STA (02:05)
--- NOTE | 2020-08-20 02:07 | ED ---
General Adult HPI - General Source: patient, EMS, RN notes reviewed Mode of arrival: ambulatory Limitations: no limitations <Tony Rodriguez - Last Filed: 08/20/20 03:02> <Florian Jerome - Last Filed: 08/20/20 03:54> - General Chief complaint: Dizziness Stated complaint: Weakness, ETOH Time Seen by Provider: 08/20/20 01:56 - History of Present Illness Initial comments: 60-year-old male presents to the emergency room for a chief complaint of dizziness. Patient was apparently drinking with his friends when he started to feel dizzy and they called the ambulance. Patient states the dizziness has since resolved. Patient reports he drinks daily about 5 beers. He states he feels well at this time denying any specific complaints. Patient does have a history of CVA. EMS reports the patient was in atrial fibrillation however has no history. Patient denies any active suicidal thoughts. Patient has no other complaints at this time including shortness of breath, chest pain, abdominal pain, nausea or vomiting, headache, or visual changes. (Tony Rodriguez) - Related Data Home Medications Medication Instructions Recorded Confirmed No Known Home Medications 03/18/18 03/18/18 Allergies Allergy/AdvReac Type Severity Reaction Status Date / Time No Known Allergies Allergy Verified 03/18/18 23:26 Review of Systems ROS Other: All systems not noted in ROS Statement are negative. <Tony Rodriguez - Last Filed: 08/20/20 03:02> ROS Other: All systems not noted in ROS Statement are negative. <Florian Jerome - Last Filed: 08/20/20 03:54> ROS Statement: Those systems with pertinent positive or pertinent negative responses have been documented in the HPI. Past Medical History Past Medical History: CVA/TIA History of Any Multi-Drug Resistant Organisms: None Reported Past Surgical History: No Surgical Hx Reported Additional Past Surgical History / Comment(s): RT HAND MIDDLE FINGER SX- BROKE KNUCKLE Past Anesthesia/Blood Transfusion Reactions: No Reported Reaction Past Psychological History: Depression Smoking Status: Current every day smoker Past Alcohol Use History: Daily Past Drug Use History: Marijuana - Past Family History Father Additional Family Medical History / Comment(s): SHINGLES. AGE 88 DON'T KNOW ANY OTHER HS Mother Additional Family Medical History / Comment(s): AGE 95 FROM OLD AGE Sister(s) Family Medical History: Cancer Additional Family Medical History / Comment(s): FROM BREAST CANCER. <Tony Rodriguez P - Last Filed: 08/20/20 03:02> General Exam Limitations: no limitations General appearance: alert, in no apparent distress Head exam: Present: atraumatic, normocephalic, normal inspection Eye exam: Present: normal appearance, PERRL, EOMI. Absent: scleral icterus, conjunctival injection, periorbital swelling ENT exam: Present: normal exam, mucous membranes moist Neck exam: Present: normal inspection, full ROM. Absent: tenderness, meningismus, lymphadenopathy Respiratory exam: Present: normal lung sounds bilaterally. Absent: respiratory distress, wheezes, rales, rhonchi, stridor Cardiovascular Exam: Present: regular rate, normal rhythm, normal heart sounds. Absent: systolic murmur, diastolic murmur, rubs, gallop, clicks GI/Abdominal exam: Present: soft, normal bowel sounds. Absent: distended, tenderness, guarding, rebound, rigid Neurological exam: Present: alert <Tony Rodriguez P - Last Filed: 08/20/20 03:02> Course Vital Signs 08/20/20 08/20/20 08/20/20 01:55 02:10 02:30 Temperature 98.1 F Pulse Rate 74 68 68 Respiratory 18 18 18 Rate Blood Pressure 163/109 183/109 153/114 O2 Sat by Pulse 98 95 Oximetry 08/20/20 08/20/20 08/20/20 02:40 02:50 03:00 Temperature Pulse Rate 70 65 77 Respiratory 16 18 16 Rate Blood Pressure 139/88 138/107 138/107 O2 Sat by Pulse 97 95 97 Oximetry 08/20/20 08/20/20 08/20/20 03:10 03:20 03:30 Temperature Pulse Rate 72 73 79 Respiratory 16 16 16 Rate Blood Pressure 152/122 121/73 121/73 O2 Sat by Pulse 96 96 96 Oximetry 08/20/20 03:40 Temperature Pulse Rate 72 Respiratory 16 Rate Blood Pressure 124/80 O2 Sat by Pulse 96 Oximetry EKG Findings - EKG Comments: EKG Findings:: Normal sinus rhythm, ventricular rate 68, FL interval 190, QTc 416 <Tony Rodriguez P - Last Filed: 08/20/20 03:02> Medical Decision Making - Lab Data Result diagrams: 08/20/20 02:06 08/20/20 02:06 <Tony Rodriguez - Last Filed: 08/20/20 03:02> - Lab Data Result diagrams: 08/20/20 02:06 08/20/20 02:06 <Florian Jerome - Last Filed: 08/20/20 03:54> - Medical Decision Making Patient initially presents hypertensive which was treated. Minimal dizziness upon arrival however that resolved. Patient was found to be acutely intoxicated with an alcohol of 379. CBC unremarkable. CMP does reveal hyperkalemia however specimen is hemolyzed. EKG does not show evidence of hyperkalemia. At this time patient will be admitted for acute alcoholic intoxication. Dr. Jerome did speak with Dr. Farmer who accepts this admission. (Tony Rodriguez) I saw this patient in conjunction with the physician human services assistant. I performed independent history and physical exam. Agree with case management. (Florian Jerome) - Lab Data Lab Results 08/20/20 08/20/20 08/20/20 Range/Units 02:06 02:06 02:06 WBC 5.5 (3.8-10.6) k/uL RBC 4.43 (4.30-5.90) m/uL Hgb 15.1 (13.0-17.5) gm/dL Hct 43.1 (39.0-53.0) % MCV 97.2 (80.0-100.0) fL MCH 34.0 (25.0-35.0) pg MCHC 34.9 (31.0-37.0) g/dL RDW 12.2 (11.5-15.5) % Plt Count 155 (150-450) k/uL MPV 8.6 Neutrophils % 29 % Lymphocytes % 59 % Monocytes % 5 % Eosinophils % 4 % Basophils % 2 % Neutrophils # 1.6 (1.3-7.7) k/uL Lymphocytes # 3.2 (1.0-4.8) k/uL Monocytes # 0.3 (0-1.0) k/uL Eosinophils # 0.2 (0-0.7) k/uL Basophils # 0.1 (0-0.2) k/uL PT 9.9 (9.0-12.0) sec INR 0.9 (<1.2) APTT 26.3 (22.0-30.0) sec Sodium 133 L (137-145) mmol/L Potassium 5.8 H (3.5-5.1) mmol/L Chloride 102 (98-107) mmol/L Carbon Dioxide 21 L (22-30) mmol/L Anion Gap 10 mmol/L BUN 5 L (9-20) mg/dL Creatinine 0.67 (0.66-1.25) mg/dL Est GFR (CKD-EPI)AfAm >90 (>60 ml/min/1.73 sqM) Est GFR (CKD-EPI)NonAf >90 (>60 ml/min/1.73 sqM) Glucose 96 (74-99) mg/dL Calcium 9.0 (8.4-10.2) mg/dL Magnesium 1.7 (1.6-2.3) mg/dL Total Bilirubin 1.5 H (0.2-1.3) mg/dL AST 137 H (17-59) U/L ALT 26 (4-49) U/L Alkaline Phosphatase 52 (38-126) U/L Troponin I (0.000-0.034) ng/mL Total Protein 9.0 H (6.3-8.2) g/dL Albumin 5.2 H (3.5-5.0) g/dL Urine Color Urine Appearance (Clear) Urine pH (5.0-8.0) Ur Specific [place] (1.001-1.035) Urine Protein (Negative) Urine Glucose (UA) (Negative) Urine Ketones (Negative) Urine Blood (Negative) Urine Nitrite (Negative) Urine Bilirubin (Negative) Urine Urobilinogen (<2.0) mg/dL Ur Leukocyte Esterase (Negative) Serum Alcohol 379 H* mg/dL 08/20/20 08/20/20 Range/Units 02:06 02:27 WBC (3.8-10.6) k/uL RBC (4.30-5.90) m/uL Hgb (13.0-17.5) gm/dL Hct (39.0-53.0) % MCV (80.0-100.0) fL MCH (25.0-35.0) pg MCHC (31.0-37.0) g/dL RDW (11.5-15.5) % Plt Count (150-450) k/uL MPV Neutrophils % % Lymphocytes % % Monocytes % % Eosinophils % % Basophils % % Neutrophils # (1.3-7.7) k/uL Lymphocytes # (1.0-4.8) k/uL Monocytes # (0-1.0) k/uL Eosinophils # (0-0.7) k/uL Basophils # (0-0.2) k/uL PT (9.0-12.0) sec INR (<1.2) APTT (22.0-30.0) sec Sodium (137-145) mmol/L Potassium (3.5-5.1) mmol/L Chloride (98-107) mmol/L Carbon Dioxide (22-30) mmol/L Anion Gap mmol/L BUN (9-20) mg/dL Creatinine (0.66-1.25) mg/dL Est GFR (CKD-EPI)AfAm (>60 ml/min/1.73 sqM) Est GFR (CKD-EPI)NonAf (>60 ml/min/1.73 sqM) Glucose (74-99) mg/dL Calcium (8.4-10.2) mg/dL Magnesium (1.6-2.3) mg/dL Total Bilirubin (0.2-1.3) mg/dL AST (17-59) U/L ALT (4-49) U/L Alkaline Phosphatase (38-126) U/L Troponin I 0.018 (0.000-0.034) ng/mL Total Protein (6.3-8.2) g/dL Albumin (3.5-5.0) g/dL Urine Color Colorless Urine Appearance Clear (Clear) Urine pH 5.5 (5.0-8.0) Ur Specific [place] 1.003 (1.001-1.035) Urine Protein Negative (Negative) Urine Glucose (UA) Negative (Negative) Urine Ketones Negative (Negative) Urine Blood Negative (Negative) Urine Nitrite Negative (Negative) Urine Bilirubin Negative (Negative) Urine Urobilinogen <2.0 (<2.0) mg/dL Ur Leukocyte Esterase Negative (Negative) Serum Alcohol mg/dL Disposition Is patient prescribed a controlled substance at d/c from ED?: No Time of Disposition: 03:00 <Jennifer,Tony P - Last Filed: 08/20/20 03:02> <Florian Jerome - Last Filed: 08/20/20 03:54> Clinical Impression: Alcohol intoxication, Hypertension Disposition: ADMITTED IP TO THIS HOSP Condition: Fair Referrals: None,Stated [Primary Care Provider] - 1-2 days
[2020-08-20 02:14] LABS: Basophils # (A) 0.1 k/uL (0-0.2); Basophils % (A) 2 %; Eosinophils # (A) 0.2 k/uL (0-0.7); Eosinophils % (A) 4 %; HCT 43.1 % (39.0-53.0); HGB 15.1 gm/dL (13.0-17.5); Lymphocytes # (A) 3.2 k/uL (1.0-4.8); Lymphocytes % (A) 59 %; MCHC 34.9 g/dL (31.0-37.0); MCV 97.2 fL (80.0-100.0); Mean Platelet Volume 8.6; Monocytes # (A) 0.3 k/uL (0-1.0); Monocytes % (A) 5 %; Neutrophils # (A) 1.6 k/uL (1.3-7.7); Neutrophils % (A) 29 %; Platelet Count 155 k/uL (150-450); RBC 4.43 m/uL (4.30-5.90); RDW 12.2 % (11.5-15.5); WBC 5.5 k/uL (3.8-10.6)
[2020-08-20 02:33] LABS: ALT 26 U/L (4-49); AST 137 U/L (17-59); African American GFR (CKD) >90 (>60 ml/min/1.73 sqM); Albumin 5.2 g/dL (3.5-5.0); Alkaline Phosphatase 52 U/L (38-126); Anion Gap 10 mmol/L; Blood Urea Nitrogen 5 mg/dL (9-20); Carbon Dioxide 21 mmol/L (22-30); Chloride 102 mmol/L (98-107); Glucose 96 mg/dL (74-99); Magnesium 1.7 mg/dL (1.6-2.3); Non-African American GFR(CKD) >90 (>60 ml/min/1.73 sqM); Sodium 133 mmol/L (137-145); Total Bilirubin 1.5 mg/dL (0.2-1.3)
[2020-08-20 02:34] LABS: Appearance,Urine Clear (Clear); Bilirubin,Urine Negative (Negative); Blood,Urine Negative (Negative); Color,Urine Colorless; Glucose,Urine (UA) Negative (Negative); Ketones,Urine Negative (Negative); Leukocyte Esterase,Urine Negative (Negative); Nitrite,Urine Negative (Negative); PH, Urine 5.5 (5.0-8.0); Protein,Urine Negative (Negative); Specific Gravity,Urine 1.003 (1.001-1.035); Urobilinogen,Urine <2.0 mg/dL (<2.0)
[2020-08-20 02:35] LABS: INR 0.9 (<1.2); Partial Thromboplastin Time 26.3 sec (22.0-30.0); Prothrombin Time 9.9 sec (9.0-12.0)
[2020-08-20 02:43] LABS: Potassium 5.8 mmol/L (3.5-5.1)
[2020-08-20 02:46] LABS: Alcohol 379 mg/dL
[2020-08-20] MEDS ORDERED: NALOXONE 0.4 MG/ML 1 ML VIAL IV PRN (02:56)
[2020-08-20] MEDS ORDERED: SODIUM CHLORIDE 0.9% 1,000 ML IV SCH ×2 (03:00→09:45)
--- NOTE | 2020-08-20 03:00 | CT ---
EXAM: CT Head Without Intravenous Contrast CLINICAL HISTORY: ITS.REASON CT Reason: dizzy TECHNIQUE: Axial computed tomography images of the head/brain without intravenous contrast. CTDI is 49.27 mGy and DLP is 1070.4 mGy-cm. This CT exam was performed using one or more of the following dose reduction techniques: automated exposure control, adjustment of the mA and/or kV according to patient size, and/or use of iterative reconstruction technique. COMPARISON: No relevant prior studies available. FINDINGS: Brain: At central atrophy and periventricular white matter low density consistent with chronic small vessel disease. There is no evidence of acute large vessel infarct or intracranial hemorrhage. Ventricles: Unremarkable. No ventriculomegaly. Bones/joints: Unremarkable. No acute fracture. Soft tissues: Unremarkable. Sinuses: Unremarkable as visualized. No acute sinusitis. Mastoid air cells: Unremarkable as visualized. No mastoid effusion. IMPRESSION: At central atrophy and periventricular white matter low density consistent with chronic small vessel disease. There is no evidence of acute large vessel infarct or intracranial hemorrhage.
[2020-08-20] MEDS ORDERED: LORazepam 2 MG/ML INJ IV PRN ×3 (03:02)
[2020-08-20] MEDS ORDERED: THIAMINE 100 MG/ML 2 ML VIAL IM STA (03:02)
--- NOTE | 2020-08-20 03:04 | XR ---
EXAM: XR Chest, 1 View CLINICAL HISTORY: ITS.REASON XR Reason: dizzy TECHNIQUE: Frontal view of the chest. COMPARISON: March 19, 2018 FINDINGS: Lungs: Calcified granuloma in the left lower lobe laterally, unchanged. Pleural space: Unremarkable. No pneumothorax. Heart: The cardiac silhouette is borderline enlarged, exaggerated by lower lung line was then previous. Mediastinum: Unremarkable. Bones/joints: Mild to moderate osteophytosis in the lower thoracic spine. IMPRESSION: Borderline cardiomegaly with the heart size exaggerated by lung volumes somewhat lower than previous. No acute infiltrate or consolidation is seen.
--- NOTE | 2020-08-20 04:40 | P.HPIM ---
History of Present Illness H&P Date: 08/20/20 The patient is a 60-year-old homeless male with a PMH of EtOH abuse who presented to the emergency room with complaint of dizziness. The patient notes that he had been out drinking with his friends as per usual, and had consumed 4- 5 24 ounce beers when his friends made him come to the emergency room as he was losing his footing. In the emergency room the patient's EtOH level was 379. He reported feeling better at time of interview. Noted that his dizziness had improved. He denied loss of consciousness, visual disturbances, or headache. Notes similar to his previous episodes of intoxication. Denied history of DVTs or alcohol withdrawal seizures. Also denied admission to the medical ICU due to his alcohol withdrawal. Further denied visual complaints. Denied chest pain, shortness of breath, fever, chills, nausea, vomiting. Denied abdominal pain, diarrhea. Review of Systems Pertinent positives and negatives as discussed in HPI, a complete review of s ystems was performed and all other systems are negative. Past Medical History Past Medical History: CVA/TIA History of Any Multi-Drug Resistant Organisms: None Reported Past Surgical History: No Surgical Hx Reported Additional Past Surgical History / Comment(s): RT HAND MIDDLE FINGER SX- BROKE KNUCKLE Past Anesthesia/Blood Transfusion Reactions: No Reported Reaction Past Psychological History: Depression Smoking Status: Current every day smoker Past Alcohol Use History: Daily Past Drug Use History: Marijuana - Past Family History Father Additional Family Medical History / Comment(s): SHINGLES. AGE 88 DON'T KNOW ANY OTHER HS Mother Additional Family Medical History / Comment(s): AGE 95 FROM OLD AGE Sister(s) Family Medical History: Cancer Additional Family Medical History / Comment(s): FROM BREAST CANCER. Medications and Allergies Home Medications Medication Instructions Recorded Confirmed Type No Known Home Medications 03/18/18 03/18/18 History Allergies Allergy/AdvReac Type Severity Reaction Status Date / Time No Known Allergies Allergy Verified 03/18/18 23:26 Physical Exam Vitals: Vital Signs Temp Pulse Resp BP Pulse Ox 08/20/20 03:40 72 16 124/80 96 08/20/20 03:30 79 16 121/73 96 08/20/20 03:20 73 16 121/73 96 08/20/20 03:10 72 16 152/122 96 08/20/20 03:00 77 16 138/107 97 08/20/20 02:50 65 18 138/107 95 08/20/20 02:40 70 16 139/88 97 08/20/20 02:30 68 18 153/114 08/20/20 02:10 68 18 183/109 95 08/20/20 01:55 98.1 F 74 18 163/109 98 Intake and Output 08/19/20 08/19/20 08/20/20 14:59 22:59 06:59 Other: Weight 68.039 kg General: Disheveled male, non toxic, no distress, appears at stated age, normal weight Derm: no unusual rashes/lesions no unusual ecchymoses, warm, dry Head: atraumatic, normocephalic, symmetric Eyes: EOMI, no lid lag, anicteric sclera, pupils equal round reactive to light ENT: Nose and ears atraumatic, no thrush, no pharyngeal erythema, no tongue fasciculations noted Neck: No thyromegaly, no cervical lymphadenopathy, trachea midline, supple Mouth: no lip lesion, mucus membranes moist Cardiovascular: S1S2 reg, no murmur, positive posterior tibial pulse bilateral, no edema, capillary refill less than 2 seconds Lungs: CTA bilateral, no rhonchi, no rales , no accessory muscle use Abdominal: soft, nontender to palpation, no guarding, no appreciable organomegaly, normal bowel sounds Ext: no gross muscle atrophy, muscle strength 5 out of 5 in all 4 extremities grossly, no contractures, Neuro: CN II-XI grossly intact, mild outstretched hand tremor, no focal deficits noted Psych: Alert, oriented, appropriate affect Results CBC & Chem 7: 08/20/20 02:06 08/20/20 02:06 Labs: Abnormal Lab Results - Last 24 Hours (Table) 08/20/20 Range/Units 02:06 Sodium 133 L (137-145) mmol/L Potassium 5.8 H (3.5-5.1) mmol/L Carbon Dioxide 21 L (22-30) mmol/L BUN 5 L (9-20) mg/dL Total Bilirubin 1.5 H (0.2-1.3) mg/dL AST 137 H (17-59) U/L Total Protein 9.0 H (6.3-8.2) g/dL Albumin 5.2 H (3.5-5.0) g/dL Serum Alcohol 379 H* mg/dL Assessment and Plan Plan: Alcohol intoxication -Continue with IV fluids -Thiamine, folate -Aspiration, fall, seizure precautions -CIWA protocol Hyponatremia -Likely secondary to poor oral intake -Continue with gentle IV hydration and monitor BMP Abnormal LFTs -Likely secondary to diuretics at a toxic effect of EKG abuse -Monitor for now DVT prophylaxis -Heparin subq The patient is admitted with an anticipated less than 2 midnight stay for evaluation of EtOH abuse CODE STATUS: Full Code Discussed with: Patient Anticipated discharge date: in am Anticipated discharge place: Nursing Home A total of 35 minutes was spent on the care of this complex patient more than 50% of the time was spent in counseling and care coordination.
[2020-08-20 07:24] VITALS: RESP 18
[2020-08-20] MEDS ORDERED: FOLIC ACID-VIT B COMPLEX-VIT C 1 CAP PO SCH (09:00)
[2020-08-20 09:44] LABS: African American GFR (CKD) 120.6 (60.0-200.0); Albumin 4.7 g/dL (3.80-4.90); Albumin/Globulin Ratio 1.96 (1.60-3.17); Anion Gap 11.1 mmol/L (4.00-12.00); BUN/Creat Ratio 7.14 Ratio (12.00-20.00); Calcium 9.2 mg/dL (8.7-10.3); Carbon Dioxide 23.9 mmol/L (21.6-31.8); Globulin 2.4 g/dL (1.6-3.3); Potassium 4.1 mmol/L (3.5-5.5); Total Bilirubin 0.3 mg/dL (0.3-1.2); Total Protein 7.1 g/dL (6.2-8.2)
[2020-08-20] MEDS: HEPARIN SODIUM,PORCINE 5,000 UNIT/ML 1 ML VIAL SQ SCH ×2 (10:47→16:06)
--- NOTE | 2020-08-20 15:45 | P.DS ---
Providers Date of admission: 08/20/20 03:43 Expected date of discharge: 08/20/20 Attending physician: Janie Farmer MD Primary care physician: Stated None Hospital Course: The patient is a 60-year-old homeless male with a PMH of EtOH abuse who presented to the emergency room with complaint of dizziness. The patient notes that he had been out drinking with his friends as per usual, and had consumed 4- 5 24 ounce beers when his friends made him come to the emergency room as he was losing his footing. In the emergency room the patient's EtOH level was 379. He denied loss of consciousness, visual disturbances, or headache. Notes similar to his previous episodes of intoxication. Patient was evaluated in the ER and a computed tomography scan of the brain showed no acute findings. He was started on aggressive IV fluid hydration. He was seen and evaluated by me and appeared stable with no evidence of withdrawal. Patient was counseled extensively regarding alcohol cessation. I provided him with a prescription for Valium to take 3 times a day in the next couple of days to prevent withdrawal. I strongly advised him not to take Valium if he ended up drinking. His repeat breath alcohol test showed significant improvement and patient is considered sober. He will be discharged home in a stable condition. Patient Condition at Discharge: Stable Plan - Discharge Summary New Discharge Prescriptions: New Diazepam [Valium] 5 mg PO Q8H PRN 3 Days #9 tab PRN Reason: Anxiety Discharge Medication List Diazepam [Valium] 5 mg PO Q8H PRN 3 Days #9 tab 08/20/20 [Rx] Follow up Appointment(s)/Referral(s): None,Stated [Primary Care Provider] - 1-2 days Mynor Go [STAFF PHYSICIAN] - 1 Week Discharge Disposition: HOME SELF-CARE
[2020-08-20 16:06] VITALS: BP 164/90; PULSE 80; TEMP 97.7
[2020-08-20] MEDS ORDERED: THIAMINE 100 MG TAB PO SCH (17:30)
== END 2020-08-20 19:09 | disposition home or self-care (01) ==
LOC: EC 01:53 → 4SSUR 03:43 → 1SOBS 09:38
PROVIDERS: ADMIT Internal Medicine; ATTEND Internal Medicine
DX: F10.129 Alcohol abuse with intoxication, unspecified (principal); Y90.8 Blood alcohol level of 240 mg/100 ml or more; I48.91 Unspecified atrial fibrillation; F32.9 Major depressive disorder, single episode, unspecified; F17.200 Nicotine dependence, unspecified, uncomplicated; I10 Essential (primary) hypertension; E87.5 Hyperkalemia; E87.1 Hypo-osmolality and hyponatremia; R94.5 Abnormal results of liver function studies; Z59.0 Homelessness; Z20.828 Contact with and (suspected) exposure to other viral communicable diseases; Z86.73 Personal history of transient ischemic attack (TIA), and cerebral infarction without residual deficits; Z80.3 Family history of malignant neoplasm of breast; Z83.1 Family history of other infectious and parasitic diseases
CPT/HCPCS: 82075; 96361; 96372; 96374; 99285; 36415; 93005; 80053; 83735; 84484; 85025; 85610; 85730; 81003; 87635; 71045; 70450; G0378 ×2; G0480; J0360; J1644; J3411; 80320

== ENCOUNTER 2020-12-19 15:51 | Observation (INO) | payer OTHER ==
[2020-12-19] MEDS ORDERED: SODIUM CHLORIDE 0.9% 1,000 ML IV ONE (16:25)
--- NOTE | 2020-12-19 17:11 | ED ---
General Adult HPI - General Chief complaint: Psychiatric Symptoms Stated complaint: Depression/suicidal Time Seen by Provider: 12/19/20 15:56 Source: patient, EMS, RN notes reviewed, old records reviewed Mode of arrival: EMS Limitations: no limitations - History of Present Illness Initial comments: 60-year-old male presenting for mental health evaluation, alcohol intoxication. Patient states he's had increased depression and thoughts of suicide. Does admit to alcohol consumption today. No chest pain or abdominal pain. He denies suicide attempt. He states he drank 5 beers prior to arrival. - Related Data Home Medications Medication Instructions Recorded Confirmed No Known Home Medications 12/19/20 12/19/20 Allergies Allergy/AdvReac Type Severity Reaction Status Date / Time No Known Allergies Allergy Verified 12/19/20 18:05 Review of Systems ROS Statement: Those systems with pertinent positive or pertinent negative responses have been documented in the HPI. ROS Other: All systems not noted in ROS Statement are negative. Past Medical History Past Medical History: CVA/TIA History of Any Multi-Drug Resistant Organisms: None Reported Past Surgical History: No Surgical Hx Reported Additional Past Surgical History / Comment(s): RT HAND MIDDLE FINGER SX- BROKE KNUCKLE Past Anesthesia/Blood Transfusion Reactions: No Reported Reaction Past Psychological History: Depression Smoking Status: Current every day smoker Past Alcohol Use History: Daily Past Drug Use History: Marijuana - Past Family History Father Additional Family Medical History / Comment(s): SHINGLES. AGE 88 DON'T KNOW ANY OTHER HS Mother Additional Family Medical History / Comment(s): AGE 95 FROM OLD AGE Sister(s) Family Medical History: Cancer Additional Family Medical History / Comment(s): FROM BREAST CANCER. General Exam Limitations: no limitations General appearance: alert, appears intoxicated Head exam: Present: atraumatic, normocephalic Eye exam: Present: normal appearance, PERRL ENT exam: Present: mucous membranes dry Neck exam: Present: normal inspection. Absent: tenderness, meningismus Respiratory exam: Present: normal lung sounds bilaterally. Absent: respiratory distress, wheezes Cardiovascular Exam: Present: regular rate, normal rhythm GI/Abdominal exam: Present: soft. Absent: distended, tenderness, guarding Extremities exam: Present: normal inspection, normal capillary refill. Absent: pedal edema, calf tenderness Neurological exam: Present: alert, oriented X3, CN II-XII intact. Absent: motor sensory deficit Psychiatric exam: Present: depressed, anxious, suicidal ideation Skin exam: Present: warm, dry, intact. Absent: cyanosis, diaphoretic Course Vital Signs 12/19/20 12/19/20 16:02 19:46 Temperature 97.9 F Pulse Rate 73 82 Respiratory 18 16 Rate Blood Pressure 178/126 146/88 O2 Sat by Pulse 97 96 Oximetry Medical Decision Making - Medical Decision Making 52-year-old male presenting with alcohol intoxication. Alcohol level is 388. He is having suicidal ideation. He we'll he will be admitted for both alcohol intoxication and suicidal ideation. Case discussed with the admitting physician. - Lab Data Result diagrams: 12/19/20 17:35 12/19/20 17:35 Lab Results 12/19/20 12/19/20 12/19/20 Range/Units 17:35 17:35 17:35 WBC 4.8 (3.8-10.6) k/uL RBC 4.37 (4.30-5.90) m/uL Hgb 14.3 (13.0-17.5) gm/dL Hct 42.8 (39.0-53.0) % MCV 97.9 (80.0-100.0) fL MCH 32.7 (25.0-35.0) pg MCHC 33.4 (31.0-37.0) g/dL RDW 12.9 (11.5-15.5) % Plt Count 152 (150-450) k/uL MPV 7.9 Neutrophils % 50 % Lymphocytes % 39 % Monocytes % 6 % Eosinophils % 2 % Basophils % 1 % Neutrophils # 2.4 (1.3-7.7) k/uL Lymphocytes # 1.9 (1.0-4.8) k/uL Monocytes # 0.3 (0-1.0) k/uL Eosinophils # 0.1 (0-0.7) k/uL Basophils # 0.0 (0-0.2) k/uL Sodium 142 (137-145) mmol/L Potassium 4.2 (3.5-5.1) mmol/L Chloride 104 (98-107) mmol/L Carbon Dioxide 29 (22-30) mmol/L Anion Gap 9 mmol/L BUN 6 L (9-20) mg/dL Creatinine 0.85 (0.66-1.25) mg/dL Est GFR (CKD-EPI)AfAm >90 (>60 ml/min/1.73 sqM) Est GFR (CKD-EPI)NonAf >90 (>60 ml/min/1.73 sqM) Glucose 93 (74-99) mg/dL Calcium 9.1 (8.4-10.2) mg/dL Magnesium 1.8 (1.6-2.3) mg/dL Total Bilirubin 0.4 (0.2-1.3) mg/dL AST 104 H (17-59) U/L ALT 15 (4-49) U/L Alkaline Phosphatase 59 (38-126) U/L Total Protein 7.3 (6.3-8.2) g/dL Albumin 4.4 (3.5-5.0) g/dL Urine Opiates Screen Not Detected (NotDetected) Ur Oxycodone Screen Not Detected (NotDetected) Urine Methadone Screen Not Detected (NotDetected) Ur Propoxyphene Screen Not Detected (NotDetected) Ur Barbiturates Screen Not Detected (NotDetected) U Tricyclic Antidepress Not Detected (NotDetected) Ur Phencyclidine Scrn Not Detected (NotDetected) Ur Amphetamines Screen Not Detected (NotDetected) U Methamphetamines Scrn Not Detected (NotDetected) U Benzodiazepines Scrn Not Detected (NotDetected) Urine Cocaine Screen Not Detected (NotDetected) U Marijuana (THC) Screen Detected H (NotDetected) Serum Alcohol 388 H* mg/dL Disposition Clinical Impression: Alcohol intoxication, Suicidal ideation, Depression Disposition: ADMITTED IP TO THIS HOSP Condition: Stable Is patient prescribed a controlled substance at d/c from ED?: No Decision to Admit Reason: Admit from EC
[2020-12-19 17:52] LABS: Basophils % (A) 1 %; Eosinophils # (A) 0.1 k/uL (0-0.7); Eosinophils % (A) 2 %; HCT 42.8 % (39.0-53.0); HGB 14.3 gm/dL (13.0-17.5); Lymphocytes # (A) 1.9 k/uL (1.0-4.8); Lymphocytes % (A) 39 %; MCH 32.7 pg (25.0-35.0); MCHC 33.4 g/dL (31.0-37.0); MCV 97.9 fL (80.0-100.0); Mean Platelet Volume 7.9; Monocytes # (A) 0.3 k/uL (0-1.0); Monocytes % (A) 6 %; Neutrophils # (A) 2.4 k/uL (1.3-7.7); Neutrophils % (A) 50 %; Platelet Count 152 k/uL (150-450); RBC 4.37 m/uL (4.30-5.90); RDW 12.9 % (11.5-15.5); WBC 4.8 k/uL (3.8-10.6)
[2020-12-19 17:57] LABS: ALT 15 U/L (4-49); AST 104 U/L (17-59); African American GFR (CKD) >90 (>60 ml/min/1.73 sqM); Albumin 4.4 g/dL (3.5-5.0); Alkaline Phosphatase 59 U/L (38-126); Anion Gap 9 mmol/L; Blood Urea Nitrogen 6 mg/dL (9-20); Calcium 9.1 mg/dL (8.4-10.2); Carbon Dioxide 29 mmol/L (22-30); Chloride 104 mmol/L (98-107); Glucose 93 mg/dL (74-99); Magnesium 1.8 mg/dL (1.6-2.3); Non-African American GFR(CKD) >90 (>60 ml/min/1.73 sqM); Potassium 4.2 mmol/L (3.5-5.1); Sodium 142 mmol/L (137-145); Total Bilirubin 0.4 mg/dL (0.2-1.3); Total Protein 7.3 g/dL (6.3-8.2)
[2020-12-19 18:48] LABS: Alcohol 388 mg/dL
[2020-12-19] MEDS ORDERED: NALOXONE 0.4 MG/ML 1 ML VIAL IV PRN (19:08)
[2020-12-19 19:15] LABS: Amphetamine Screen,Urine Not Detected (NotDetected); Barbiturate Screen,Urine Not Detected (NotDetected); Benzodiazepines Screen,Urine Not Detected (NotDetected); Cocaine Screen,Urine Not Detected (NotDetected); Methadone Screen, Urine Not Detected (NotDetected); Opiate Screen,Urine Not Detected (NotDetected); Oxycodone Screen, Urine Not Detected (NotDetected); Phencyclidine Screen,Urine Not Detected (NotDetected); Tricyclic Antidepressant,Urine Not Detected (NotDetected); Urn Cannabinoid Scrn Detected (NotDetected)
--- NOTE | 2020-12-19 21:01 | P.HPIM ---
History of Present Illness H&P Date: 12/19/20 Patient is a 60-year-old male with a PMH of EtOH abuse who is currently homeless presented to the emergency room with complaints of depression. The patient reports that he has been drinking hard liquor along with several beers daily and had some suicidal thoughts. He denied any plans on harming himself. Otherwise denied additional complaints. Denied chest pain, SOB, fever, chills, cough, nausea, vomiting, diarrhea, or abdominal pain. Underwent an extensive evaluation in the emergency room with alcohol level of 388. Patient was admitted for psychiatric evaluation and alcohol intoxication. Review of Systems Pertinent positives and negatives as discussed in HPI, a complete review of systems was performed and all other systems are negative. Past Medical History Past Medical History: CVA/TIA History of Any Multi-Drug Resistant Organisms: None Reported Past Surgical History: No Surgical Hx Reported Additional Past Surgical History / Comment(s): RT HAND MIDDLE FINGER SX- BROKE KNUCKLE Past Anesthesia/Blood Transfusion Reactions: No Reported Reaction Past Psychological History: Depression Smoking Status: Current every day smoker Past Alcohol Use History: Daily Past Drug Use History: Marijuana - Past Family History Father Additional Family Medical History / Comment(s): SHINGLES. AGE 88 DON'T KNOW ANY OTHER HS Mother Additional Family Medical History / Comment(s): AGE 95 FROM OLD AGE Sister(s) Family Medical History: Cancer Additional Family Medical History / Comment(s): FROM BREAST CANCER. Medications and Allergies Home Medications Medication Instructions Recorded Confirmed Type No Known Home Medications 12/19/20 12/19/20 History Allergies Allergy/AdvReac Type Severity Reaction Status Date / Time No Known Allergies Allergy Verified 12/19/20 18:05 Physical Exam Vitals: Vital Signs Temp Pulse Resp BP Pulse Ox 12/19/20 19:46 82 16 146/88 96 12/19/20 16:02 97.9 F 73 18 178/126 97 Intake and Output 12/19/20 12/19/20 12/19/20 06:59 14:59 22:59 Other: Weight 68.039 kg General: disheveled male, non toxic, no distress, appears at stated age, normal weight Derm: no unusual rashes/lesions no unusual ecchymoses, warm, dry Head: atraumatic, normocephalic, symmetric Eyes: EOMI, no lid lag, anicteric sclera, pupils equal round reactive to light ENT: Nose and ears atraumatic, no thrush, no pharyngeal erythema Neck: No thyromegaly, no cervical lymphadenopathy, trachea midline, supple Mouth: no lip lesion, mucus membranes moist Cardiovascular: S1S2 reg, no murmur, positive posterior tibial pulse bilateral, no edema, capillary refill less than 2 seconds Lungs: CTA bilateral, no rhonchi, no rales , no accessory muscle use Abdominal: soft, nontender to palpation, no guarding, no appreciable organomegaly, normal bowel sounds Ext: no gross muscle atrophy, muscle strength 5 out of 5 in all 4 extremities grossly, no contractures, Neuro: CN II-XI grossly intact, light touch intact all 4 extremities, no focal neuro deficits noted Psych: Alert, oriented, appropriate affect Results CBC & Chem 7: 12/19/20 17:35 12/19/20 17:35 Labs: Abnormal Lab Results - Last 24 Hours (Table) 12/19/20 12/19/20 Range/Units 17:35 17:35 BUN 6 L (9-20) mg/dL AST 104 H (17-59) U/L U Marijuana (THC) Screen Detected H (NotDetected) Serum Alcohol 388 H* mg/dL Assessment and Plan Plan: Alcohol intoxication -Continue with thiamine, multivitamin -CIWA protocol -Fall precautions -Monitor electrolytes Depression with suicidal ideation -Psychiatry consulted Hypertension -Possibly due to ongoing stressor -Monitor for now and consider antihypertensives if persists DVT prophylaxis -Heparin subq The patient is admitted with an anticipated less than 2 midnight stay for evaluation of EtOH intoxication CODE STATUS: Full Code Discussed with: Patient Anticipated discharge date: in am Anticipated discharge place[facility] A total of 30 minutes was spent on the care of this complex patient more than 50% of the time was spent in counseling and care coordination.
[2020-12-19] MEDS ORDERED: LORazepam 2 MG/ML INJ IV PRN ×3 (21:02)
[2020-12-20] MEDS: THIAMINE 100 MG TAB PO SCH ×2 (00:13→10:02)
[2020-12-20] MEDS: MULTIVITAMINS, THERA 1 EACH TAB PO SCH ×2 (00:13→10:02)
[2020-12-20] MEDS: SODIUM CHLORIDE 0.9% 1,000 ML IV SCH ×2 (00:14→00:20)
[2020-12-20] MEDS: HEPARIN SODIUM,PORCINE/PF 5,000 UNIT/0.5 ML SYRINGE SQ SCH ×2 (00:14→10:02)
[2020-12-20 04:27] VITALS: RESP 16
[2020-12-20 10:49] LABS: African American GFR (CKD) 114.1 (60.0-200.0); BUN/Creat Ratio 8.75 Ratio (12.00-20.00); Calcium 8.8 mg/dL (8.7-10.3); Magnesium 1.6 mg/dL (1.5-2.4); Non-African American GFR(CKD) 98.5 (60.0-200.0); Potassium 3.5 mmol/L (3.5-5.5)
[2020-12-20] MEDS ORDERED: amLODIPine 5 MG TAB PO SCH (11:30)
[2020-12-20] MEDS ORDERED: lisinopriL 10 MG TAB PO SCH (11:30)
[2020-12-20 11:43] VITALS: TEMP 98.3
--- NOTE | 2020-12-20 15:11 | P.CN ---
Psychiatric Consult - . Consult date: 12/20/20 Consult:: IDENTIFYING DATA: The patient is a 60-year-old single male admitted to medicine service for the treatment of acute alcohol intoxication and withdrawal. The staff consultant consulted psychiatry becausehe expressed suicidal ideation. HISTORY OF PRESENT ILLNESS: The medical record and interviewed the patient. He minimizes severity of his alcohol use alleging that he only drinks beer; unlike the medical assessment was admitted to drinking "hard liquor and several beers daily". He acknowledged that he feels depressed and has been having suicidal thoughts. I inquired about the reason for depression he replied that he is " homeless". He was living with some friends up until about "a week or 2 ago" when "we had a disagreement" and "I had to leave." Over the last "week or 2, he is been staying with various friends and "walking the streets." He alleges that he does not have money to afford his own apartment or pay for room and board. He has no family with whom he meets enough even temporarily. He described feeling sad and having thoughts of suicide and described feelings of hopelessness, helplessness and worthlessness. He did not express clear suicidal plan or intent. He is having alcohol withdrawal symptoms including nausea, vomiting, diarrhea, sweating and tremor. He denied auditory, visual or tactile disturbances. PAST PSYCHIATRIC HISTORY: He denied a history of psychiatric treatment or psychiatric hospitalizations. PAST MEDICAL HISTORY: He has a history of CVA ALLERGIES: NO KNOWN DRUG ALLERGIES SUBSTANCE USE HISTORY: He was guarded about his substance use history. He minimizes severity of his alcohol use but acknowledged that he "usually" drinks every day. He denied that he has been in a substance abuse treatment program. He denied use of other drugs with the exception of "occasional" marijuana. FAMILY PSYCHIATRIC/SUBSTANCE USE HISTORY: He is unaware of family history of mental health or substance use problems SOCIAL HISTORY: His born and raised in [facility]. He graduated high school. He is worth in retail and in factories. He was "laying off" several weeks ago. He is never and has no children. He has 2 brothers and 3 sisters. MENTAL STATUS EXAM: He presented as a disheveled, tremulous and diaphoretic 60-year-old male who was resting completed in bed. He made eye contact and attended to the interview. He is ready complexion but no prominent physical abnormalities. He had a anxious facial expression. He was alert and oriented to person, place and time. He was tremulous not agitated. Speech was spontaneous, dysarthria, decreased volume. His affect was anxious and depressed. He expressed suicidal ideation and wishes. He denied suicidal intent or plan. He denied homicidal ideation. He feels hopeless and helpless. He ruminated about his employment, financial and housing problems. Express ideas reference, paranoid ideation or delusions. His thinking was concrete and associations were coherent, logical and goal directed. He denied hallucinations did not appear to be responding to internal stimuli. Global impression of intellect is average. IMPRESSIONS: He is a 60-year-old single male who has a history of an alcohol use disorder. He presented to [facility] acutely intoxicated and expressing suicidal ideation. The proximal cause of his distress and suicidal ideation appears to be social including problems with employment, income and housing. He has no history of psychiatric treatment, no prior psychiatric hospitalizations and no history of self abuse treatment. The best be treated inpatient basis with, initial psychopharmacology and multimodal therapy. DIAGNOSIS: Alcohol withdrawal, rule out alcohol withdrawal delirium, alcohol use disorder severe, alcohol induced substance use disorder, rule out major depressive disorder, housing problems, financial problems, lack of social support. RECOMMENDATION: Transfer to psychiatric unit once medically stable. Continue with one-to-one until he is transferred. Decrease consult. 12/20/20 15:01
[2020-12-20 15:29] VITALS: BP 187/99; PULSE 68
[2020-12-20] MEDS ORDERED: hydrALAZINE HCL 25 MG TAB PO PRN (15:30)
--- NOTE | 2020-12-20 15:34 | P.DS ---
Providers Date of admission: 12/19/20 19:09 Expected date of discharge: 12/20/20 Attending physician: Janie Farmer MD Consults: 12/19/20 19:09 Consult Physician Routine Consulting Provider: Asher Mata Consult Reason/Comments: ETOH, SI Do you want consulting provider notified?: Already Contacted Primary care physician: Stated None Hospital Course: Alcohol intoxication -Continued with thiamine, multivitamin upon discharge to psychiatric unit Depression with suicidal ideation -Psychiatry consulted, and recommended transfer to MHU upon discharge. Hypertension - patient started on amlodipine 5mg and lisinopril 10mg daily - patient was also recommended to have hydralazine 25mg PO QID PRN for SBP > 160, DBP > 100 - medicine will continue to titrate medications as needed while patient is in MHU Assessment: Gen: awake, alert HEENT: normocephalic, atraumatic, good hearing acuity, moist mucous membranes Resp: good air exchange, breathing comfortably with no accessory muscle use CVS: good distal perfusion x 4, GI: soft, NTTP, ND : no SPT, no CVAT, harris catheter not present MSK: no pitting edema, no clubbing Neuro: non-focal, moving all extremities Psych: cooperative, euthymic mood Patient Condition at Discharge: Good Plan - Discharge Summary Discharge Rx Participant: No New Discharge Prescriptions: New Multivitamins, Thera [Multivitamin (formulary)] 1 each PO DAILY #30 tab Thiamine [Vitamin B-1] 100 mg PO DAILY #30 tab amLODIPine [Norvasc] 5 mg PO DAILY #30 tab Lisinopril [Zestril] 10 mg PO DAILY #30 tab hydrALAZINE HCL [Apresoline] 25 mg PO QID PRN tab PRN Reason: Blood Pressure - High Discharge Medication List Lisinopril [Zestril] 10 mg PO DAILY #30 tab 12/20/20 [Rx] Multivitamins, Thera [Multivitamin (formulary)] 1 each PO DAILY #30 tab 12/20/20 [Rx] Thiamine [Vitamin B-1] 100 mg PO DAILY #30 tab 12/20/20 [Rx] amLODIPine [Norvasc] 5 mg PO DAILY #30 tab 12/20/20 [Rx] hydrALAZINE HCL [Apresoline] 25 mg PO QID PRN tab 12/20/20 [Rx] Follow up Appointment(s)/Referral(s): None,Stated [Primary Care Provider] - 1-2 days Discharge Disposition: HOME SELF-CARE
== END 2020-12-20 15:20 | disposition home or self-care (01) ==
LOC: EC 15:51 → 5NMEDONC 19:09
PROVIDERS: ADMIT Internal Medicine; ATTEND Internal Medicine
DX: F10.129 Alcohol abuse with intoxication, unspecified (principal); F10.139 Alcohol abuse with withdrawal, unspecified; I10 Essential (primary) hypertension; F32.9 Major depressive disorder, single episode, unspecified; R45.851 Suicidal ideations; F17.200 Nicotine dependence, unspecified, uncomplicated; Z59.0 Homelessness; Z56.0 Unemployment, unspecified; Y90.8 Blood alcohol level of 240 mg/100 ml or more; Z86.73 Personal history of transient ischemic attack (TIA), and cerebral infarction without residual deficits; Z87.81 Personal history of (healed) traumatic fracture; Z83.1 Family history of other infectious and parasitic diseases; Z80.3 Family history of malignant neoplasm of breast
CPT/HCPCS: 82075; 99285; 36415; 80053; 80048; 83735 ×2; 85025; 80306; 87635; G0378 ×2; G0480; J1644; 80320

== ENCOUNTER 2020-12-20 15:22 | Inpatient (IN) | payer MEDICAID, OTHER ==
[2020-12-20] MEDS ORDERED: ACETAMINOPHEN TAB 325 MG TAB PO PRN (15:38)
[2020-12-20] MEDS ORDERED: LORazepam 1 MG TAB PO PRN (15:38)
[2020-12-20] MEDS ORDERED: MAGNESIUM HYDROXIDE 2,400 MG/10 ML CUP PO PRN (15:38)
[2020-12-20] MEDS ORDERED: MAG HYDROX/AL HYDROX/SIMETH 30 ML CUP PO PRN (15:38)
[2020-12-20] MEDS ORDERED: chlordiazePOXIDE 25 MG CAP PO PRN (15:42)
[2020-12-20] MEDS ORDERED: LORazepam 2 MG/ML INJ IM PRN (15:45)
[2020-12-20] MEDS ORDERED: HALOPERIDOL LACTATE 5 MG/ML 1 ML VIAL IM SCH (16:00)
[2020-12-20] MEDS ORDERED: HALOPERIDOL LACTATE 5 MG/ML 1 ML VIAL IM PRN (18:05)
[2020-12-20] MEDS: hydrALAZINE HCL 25 MG TAB PO PRN (18:58)
--- NOTE | 2020-12-21 09:26 | P.HP ---
Psychiatric H&P - . H&P Date: 12/21/20 History & Physical: IDENTIFYING DATA: The patient is a 60-year-old single male transferred from medicine service where he is admitted for acute alcohol intoxication. HISTORY OF PRESENT ILLNESS: I reviewed the medical record and interviewed the patient. He presented to the ED acutely intoxicated with blood alcohol level of 388. In addition, his UDS was positive for marijuana. While he was in the ED he expressed suicidal ideation. I consulted while he was on the medicine unit. He described feelings of depression for the last 1-2 weeks since he lost housing and was temporarily laid off from work. Because the latter, he has no money to afford an apartment, motel or room and board. He shared and apartment with friends but had a "falling out" with the man who holds the lease to the apartment. He had lived at the local half-way in the past but did not seek half-way because he thought that the program had closed. He admitted to use of alcohol but minimized the severity of his alcohol use alleging that he only drinks beer; unlike the medical assessment where he admitted to drinking "hard liquor and several beers daily". He acknowledged that he feels depressed and has been having suicidal thoughts. I inquired about the reason for depression he replied that he is "homeless". He has no family with whom he meets enough even temporarily. He described feeling sad and having thoughts of suicide and described feelings of hopelessness, helplessness and worthlessness. He did not express clear suicidal plan or intent. He is having alcohol withdrawal symptoms including nausea, vomiting, diarrhea, sweating and tremor. He denied auditory, visual or tactile disturbances. He denied a history of suicide attempts or gestures. PAST PSYCHIATRIC HISTORY: He denied a history of psychiatric treatment or psychiatric hospitalizations. PAST MEDICAL HISTORY: He has a history of CVA ALLERGIES: NO KNOWN DRUG ALLERGIES SUBSTANCE USE HISTORY: He minimizes severity of his alcohol use but acknowledged that he "usually" drinks every day. He denied that he has been in a substance abuse treatment program. He denied use of other drugs with the exception of "occasional" marijuana. FAMILY PSYCHIATRIC/SUBSTANCE USE HISTORY: He is unaware of family history of mental health or substance use problems SOCIAL HISTORY: His born and raised in [facility]. He graduated high school. 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 He was "laying off" the [place] before admission; he fully expects to return to work. He is never and has no children. He has 2 brothers and 3 sisters. MENTAL STATUS EXAM: He presented as a disheveled, tremulous and Shannon 60-year-old male who was resting completed in bed. He made eye contact and attended to the interview. He is abril complexion but no prominent physical abnormalities. He had a anxious facial expression. He was alert and oriented to person, place and time. He was tremulous not agitated. Speech was spontaneous, dysarthria, decreased volume. His affect was anxious and depressed. He expressed suicidal ideation and wishes. He denied suicidal intent or plan. He denied homicidal ideation. He feels hopeless and helpless. He ruminated about his employment, financial and housing problems. Express ideas reference, paranoid ideation or delusions. His thinking was concrete and associations were coherent, logical and goal directed. He denied hallucinations did not appear to be responding to internal stimuli. Global impression of intellect is average. STRENGTHS: Relatively good physical health, history of gainful employment, aware of his community resources WEAKNESSES: Lack of adequate housing, lack of adequate income, chronic alcohol use IMPRESSION: Is a 60-year-old single male who has history of alcohol use disorder. [facility] and complaining of depression and suicidal thoughts. He attributes depression to the temporary layoff from work and loss of housing. He does not see his alcohol use is a problem and is uninterested in substance abuse treatment. He is having moderate symptoms of alcohol withdrawal uncomplicated by delirium or psychosis. She be treated inpatient basis with combination of psychopharmacology and multimodal therapy. PRINCIPLE DIAGNOSIS: Alcohol withdrawal, alcohol use disorder severe, alcohol induced mood disorder, rule out major depressive disorder, lack of housing, lack of income, hypertension RECOMMENDATION: Admitted to the psychiatric unit. Safety precautions. Consult medicine for initial physical exam and medical history. canvas worker apprentice completed initial psychosocial assessment coordinate discharge and aftercare services. Norvasc 5 mg daily for the treatment of hypertension. Apresoline 25 mg 4 times a day when necessary for elevated blood pressure. Librium 50 mg 3 times a day for alcohol withdrawal; Taper then discontinue Librium prior to discharge. Encourage participation in therapeutic groups and activities. Evaluate clinical status response to treatment daily basis. Allergies Allergy/AdvReac Type Severity Reaction Status Date / Time No Known Allergies Allergy Verified 12/20/20 16:41 Vital Signs Temp 97.2 F L 12/20/20 17:31 Pulse 63 12/20/20 19:23 Resp 16 12/20/20 17:31 BP 185/94 12/20/20 19:23 Pulse Ox 98 12/20/20 17:31 Intake & Output 12/20/20 12/21/20 12/21/20 18:59 06:59 18:59 Weight 67.132 kg 12/21/20 09:12
[2020-12-21] MEDS: amLODIPine 5 MG TAB PO SCH (09:53)
[2020-12-21] MEDS: chlordiazePOXIDE 25 MG CAP PO SCH ×3 (10:12→22:19)
[2020-12-21] MEDS: hydrALAZINE HCL 25 MG TAB PO PRN (10:13)
[2020-12-21 12:19] LABS: Cholesterol 241 mg/dL (<200); Triglycerides 95 mg/dL (<150)
[2020-12-21 12:27] LABS: LDL Cholesterol,Calculated 48 mg/dL (0-99)
[2020-12-21 12:39] LABS: HDL Cholesterol 174 mg/dL (40-60)
--- NOTE | 2020-12-21 12:49 | P.HPMEDMHU ---
History of Present Illness H&P Date: 12/21/20 Chief Complaint: Depression, ETOH withdrawal 60 year old homeless man presented for ETOH intoxication and SI, and was transferred to the [facility] for SI and ETOH withdrawal. Medicine consulted for medical clearance and management. Pt is doing well with no complaints in the MHU at this time. He was recently started on 2 BP medications plus hydralazine PRN. Also receiving librium PRN for withdrawal. ROS is negative for n/v/c/d, f/c, cp, abd pain, dyspnea, palps, dysuria, dyschezia, numbness/weakness. Review of Systems All Systems reviewed and pertinent positives and negatives noted in HPI, all other symptoms are negative Past Medical History Past Medical History: CVA/TIA, Hypertension Additional Past Medical History / Comment(s): CVA/TIA in 2020, per patient he reports it was a "mini stroke" History of Any Multi-Drug Resistant Organisms: None Reported Past Surgical History: No Surgical Hx Reported Additional Past Surgical History / Comment(s): RT HAND MIDDLE FINGER SX- BROKE KNUCKLE at the age of 20 y/o Past Anesthesia/Blood Transfusion Reactions: No Reported Reaction Past Psychological History: Depression Smoking Status: Current every day smoker Past Alcohol Use History: Daily Additional Past Alcohol Use History / Comment(s): Pt. admits to drinking approximately 4 24oz beers per day. Last drink was 12/19/20. He also admits to occasional marijuana use. UDS + THC, Serum ETOH 388. Past Drug Use History: Marijuana Additional Drug Use History / Comment(s): Pt. admits to drinking approximately 4 24oz beers per day. Last drink was 12/19/20. He also admits to occasional marijuana use. UDS + THC, Serum ETOH 3 - Past Family History Brother(s) Family Medical History: Myocardial Infarction (RI) Additional Family Medical History / Comment(s): Brother had an RI at the age of 6262 years old. He is still alive at the age of 6565 years old. -1 brother 62 years old-No significant medical hx. -1 brother 55 years old-No significant medical hx. Father Additional Family Medical History / Comment(s): Dad at the age of 8686 years old. Mother Additional Family Medical History / Comment(s): Mother passed at the age of 9393 years old. Sister(s) Family Medical History: Cancer Additional Family Medical History / Comment(s): FROM BREAST CANCER in her 50's. Medications and Allergies Home Medications Medication Instructions Recorded Confirmed Type Lisinopril [Zestril] 10 mg PO DAILY #30 tab 12/20/20 12/20/20 Rx Multivitamins, Thera [Multivitamin 1 each PO DAILY #30 tab 12/20/20 12/20/20 Rx (formulary)] Thiamine [Vitamin B-1] 100 mg PO DAILY #30 tab 12/20/20 12/20/20 Rx amLODIPine [Norvasc] 5 mg PO DAILY #30 tab 12/20/20 12/20/20 Rx hydrALAZINE HCL [Apresoline] 25 mg PO QID PRN tab 12/20/20 12/20/20 Rx Allergies Allergy/AdvReac Type Severity Reaction Status Date / Time No Known Allergies Allergy Verified 12/20/20 16:41 Physical Exam Osteopathic Statement: *. No significant issues noted on an osteopathic structural exam other than those noted in the History and Physical/Consult. Vitals: Vital Signs Temp Pulse Pulse Resp BP BP Pulse Ox 12/21/20 11:37 116 H 138/86 12/21/20 09:58 77 20 177/87 12/20/20 19:23 63 185/94 12/20/20 17:31 97.2 F L 61 16 198/98 98 Intake and Output 12/20/20 12/21/20 12/21/20 22:59 06:59 14:59 Other: Weight 67.132 kg Gen: awake, alert HEENT: normocephalic, atraumatic, good hearing acuity, moist mucous membranes Resp: good air exchange, breathing comfortably with no accessory muscle use CVS: good distal perfusion x 4, GI: soft, NTTP, ND : no SPT, no CVAT, harris catheter not present MSK: no pitting edema, no clubbing Neuro: non-focal, moving all extremities, cranial nerves II through XII are intact Psych: cooperative, anxious mood Cranial Nerve Examination - Cranial Nerves Cranial Nerve II- Optic: Intact Cranial Nerve III- Oculomotor: Intact Cranial Nerve IV- Trochlear: Intact Cranial Nerve V- Trigeminal: Intact Cranial Nerve - Abducens: Intact Cranial Nerve VII- Facial: Intact Cranial Nerve VIII- Auditory: Intact Cranial Nerve IX- Glossopharyngeal: Intact Cranial Nerve X- Vagus: Intact Cranial Nerve XI- Accessory: Intact Cranial Nerve XII- Hypoglossal: Intact Results Labs: Abnormal Lab Results - Last 24 Hours (Table) 12/21/20 Range/Units 11:11 Cholesterol 241 H (<200) mg/dL HDL Cholesterol 174 H (40-60) mg/dL Thrombosis Risk Factor Assmnt - Choose All That Apply Any of the Below Risk Factors Present?: Yes Each Factor Represents 1 point: Age 41-60 years Other Risk Factors: No Other congenital or acquired thrombophilia - If yes, enter type in comment: No Thrombosis Risk Factor Assessment Total Risk Factor Score: 1 Thrombosis Risk Factor Assessment Level: Low Risk Assessment and Plan Assessment: Hypertension -Amlodipine -Lisinopril -Hydralazine when necessary -Treatment of withdrawal as below Alcohol use disorder Alcohol withdrawal syndrome -CIWA protocol plus Librium when necessary -Ativan when necessary -Thiamine/folic acid/multivitamin -Cessation counseling Major depressive disorder Suicidal ideation -Management per primary team
[2020-12-21] MEDS ORDERED: chlordiazePOXIDE 25 MG CAP PO SCH (16:00)
[2020-12-21 21:17] LABS: Hemoglobin A1C 5.2 % (4.0-6.0)
[2020-12-22] MEDS: chlordiazePOXIDE 25 MG CAP PO SCH ×2 (08:52→22:14)
[2020-12-22] MEDS: amLODIPine 5 MG TAB PO SCH (08:52)
--- NOTE | 2020-12-22 15:51 | P.PN ---
Progress Note - Text Progress Note Date: 12/22/20 Clinical Problems: Alcohol withdrawal, alcohol use disorder severe, alcohol induced mood disorder, rule out major depressive disorder, lack of housing, lack of income, hypertension Interim history: Reviewed the medical record he patient. He reported minimal alcohol withdrawal symptoms and his CIWA scores range from 0-7 over the last 24 hours. He denied experiencing periods of confusion or disturbances in perception. He remains concerned about his living situation but is hopeful that friends were rechecked and provide him temporary assistance. He denied having thoughts of or suicide. He is uninterested in residential substance abuse treatment and does not perceive his alcohol use is a problem. His blood pressure is normalizing and the reading this morning was 130/81. He attended one therapeutic group. He slept 6 hours last night. Is had no episodes of behavioral dyscontrol. Mental status exam: He presented as a disheveled elderly male with long unkempt hair. He made eye contact and appeared to attend to the interview. He had a blunted facial expression. He is alert and oriented to person, place and time. He had no abnormality of psychomotor activity. He did not have a hand tremor. His speech was spontaneous with slight decrease in rate and volume. His affect was blunted but appropriate. He denied suicidal ideation and wishes. He denied feeling hopeless, helpless or worthless. He didn't express ideas reference, paranoid ideation or delusions. His thinking was concrete but his associations were coherent, logical and goal directed. He denied hallucinations did not appear to responding to internal stimuli. Assessment: He is having minimal alcohol withdrawal symptoms. His mood is depressed but he is denying other symptoms of depression. He is denying suicidal ideation. Plan: Continue inpatient treatment. Safety precautions. Decrease Librium 50 mg twice a day. Continue Norvasc and a processing for hypertension.
[2020-12-23 06:36] VITALS: RESP 16
[2020-12-23] MEDS: chlordiazePOXIDE 25 MG CAP PO SCH ×3 (08:40→21:52)
[2020-12-23] MEDS: amLODIPine 5 MG TAB PO SCH (08:40)
--- NOTE | 2020-12-23 12:12 | P.PN ---
Progress Note - Text Progress Note Date: 12/23/20 Interval History: Patient was seen after speaking with the social work nutrition intern in his room and was directable and agreeable to speak with teletypewriter operator in the office. Patient appears to have a disheveled appearance today. He states that he is in the hospital because of his alcohol and his depressive and suicidal thoughts that he was having. He states that his mood has gradually been getting better however he still remains depressed today. He states that his anxiety is also been mildly improving since being on the Librium. He claims that his withdrawal symptoms have been improving and claims that his tremors have also been improving. He states that he has had fair sleep last night. He claims that he is currently homeless however has found a job and was fairly preoccupied with discharge. He was minimizing his need for hospitalization and treatment. He claims that he has not been going to groups as "I don't see any point to them". He states that he has not showered since being in the hospital. At this time patient denies any suicidal or homical ideations, intent or plan. Patient denies any auditory, visual hallucinations and denies any paranoia or delusions. Patient denies any side effects from the medications and has been compliant with meds. Mental Status Exam: General Appearance: [Patient appears to be disheveled in appearance, long hair and mir, stated age is alert, directable, and attempts to be cooperative.] Behavior: [Patient is calmly seated without any agitated behavior.] Constricted Speech: Patient's speech is fluent and nonpressured. Soft tone Mood/Affect: Mood is depressed however is improving mildly, affect is congruent and constricted. Suicidality/Homicidality: Patient denies having any suicidal or homicidal ideation intent or plan. Perceptions: Patient denies any visual hallucinations [and denies any auditory hallucinations] Though content/process: Spoke about his stressors and depression. Fairly logical. Tangential. Memory and concentration: AOX3, grossly intact for the purposes of this session Judgment and insight: Poor, Improving mildly Assessment Depressive disorder unspecified, rule out substance-induced mood disorder Alcohol use disorder severe, currently in withdrawal Cannabis use disorder mild Nicotine dependence Plan: -Patient continues to meet criteria for inpatient psychiatric admission for symptom stabilization and safety. Patient has signed [adult voluntary form and] [medication consent] and was placed in patient's chart. -Medications: Started patient on Zoloft 25 mg daily for mood/anxiety. Continuing to decrease/taper off Librium, 25 mg 3 times a day today for alcohol withdrawal. -CIWA protocol with prn ativan. thiamine + MVM for chronic etoh use. -When necessary Ativan and Haldol for agitation/aggression. -NRT -Nicorette gum -SW on board for discharge planning. Encouraged the patient to participate in milieu. likely discharge in 1-2 days, patient is homeless therefore will likely [facility]. He is currently declining substance abuse treatment or rehab.
[2020-12-23] MEDS ORDERED: NICOTINE POLACRILEX 2 MG GUM BUCCAL PRN (12:13)
[2020-12-23] MEDS: THIAMINE 100 MG TAB PO SCH (13:00)
[2020-12-23] MEDS: SERTRALINE 25 MG TAB PO SCH (13:00)
[2020-12-23] MEDS: MULTIVITAMINS, THERA 1 EACH TAB PO SCH (13:00)
[2020-12-24 07:09] VITALS: TEMP 97.3
[2020-12-24] MEDS: SERTRALINE 25 MG TAB PO SCH (08:55)
[2020-12-24] MEDS: chlordiazePOXIDE 25 MG CAP PO SCH (08:55)
[2020-12-24] MEDS: THIAMINE 100 MG TAB PO SCH (08:55)
[2020-12-24] MEDS: MULTIVITAMINS, THERA 1 EACH TAB PO SCH (08:56)
[2020-12-24] MEDS: amLODIPine 5 MG TAB PO SCH (08:56)
[2020-12-24] MEDS ORDERED: amLODIPine 5 MG TAB PO ONE (10:57)
--- NOTE | 2020-12-24 11:13 | P.PN ---
Progress Note - Text Progress Note Date: 12/24/20 Interval History: Patient was seen today laying in his bed this morning and was directable and a greeable to speak with sign writer hand in the office. Patient continues to appear to have a disheveled appearance. He states once again that he has not showered and was encouraged to do so today. He states that his mood has gradually been getting better on the unit. He states that his anxiety has been improving. His withdrawal symptoms have been improving and claims that his tremors have also been improving once again today. Patients ciwa scores have been improving since yesterday. He claims that he was able to sleep throughout the night. He continues to have fairly superficial insight into his need for treatment and hospitalization. Patient is still having elevated blood pressure. He claims that he is trying to go to more groups during the day however was fairly vague about what he wants to get out of the groups. At this time patient denies any suicidal or homical ideations, intent or plan. Patient denies any auditory, visual hallucinations and denies any paranoia or delusions. Patient denies any side effects from the medications and has been compliant with meds. Mental Status Exam: General Appearance: Patient appears to be disheveled in appearance, long hair and mir, stated age is alert, directable, and attempts to be cooperative. Behavior: Patient is calmly seated without any agitated behavior. Constricted Speech: Patient's speech is fluent and nonpressured. Soft tone Mood/Affect: Mood is depressed however is improving mildly, affect is congruent and constricted. Suicidality/Homicidality: Patient denies having any suicidal or homicidal ideation intent or plan. Perceptions: Patient denies any visual hallucinations and denies any auditory hallucinations Though content/process: Willis, Fairly logical. Tangential. Memory and concentration: AOX3, grossly intact for the purposes of this session Judgment and insight: Poor, Improving mildly Assessment Depressive disorder unspecified, rule out substance-induced mood disorder Alcohol use disorder severe, currently in withdrawal Cannabis use disorder mild Nicotine dependence Plan: -Patient continues to meet criteria for inpatient psychiatric admission for symptom stabilization and safety. Patient has signed adult voluntary form and medication consent and was placed in patient's chart. -Medications: Continue with Zoloft 25 mg daily for mood/anxiety. Continuing to decrease/taper off Librium to 10 mg 4 times a day today for alcohol withdrawal. increased amlodipine to 10mg daily for blood pressure. -CIWA protocol with prn ativan. thiamine + MVM for chronic etoh use. -When necessary Ativan and Haldol for agitation/aggression. -NRT -Nicorette gum -SW on board for discharge planning. Encouraged the patient to participate in milieu. likely discharge tomorrow as patient has been improving psychiatrically and having improvement in his w/d sx. Patient is homeless therefore will likely be discharged back to residential. He is currently declining substance abuse treatment or rehab.
[2020-12-24 11:58] VITALS: BP 167/82; PULSE 69
[2020-12-25] MEDS ORDERED: amLODIPine 10 MG TAB PO SCH (09:00)
[2020-12-25] MEDS: THIAMINE 100 MG TAB PO SCH (09:01)
[2020-12-25] MEDS: MULTIVITAMINS, THERA 1 EACH TAB PO SCH (09:01)
[2020-12-25] MEDS: SERTRALINE 25 MG TAB PO SCH (09:01)
[2020-12-25] MEDS ORDERED: lisinopriL 10 MG TAB PO SCH (09:15)
--- NOTE | 2020-12-25 09:24 | P.DS ---
Providers Date of admission: 12/20/20 15:22 Expected date of discharge: 12/25/20 Attending physician: Rafael Claire MD Consults: 12/20/20 15:38 Consult Physician Routine Consulting Provider: Julián Hines Consult Reason/Comments: medical management Do you want consulting provider notified?: Yes Primary care physician: Stated None - Discharge Diagnosis(es) (1) Depressive disorder Current Visit: Yes Status: Acute Priority: High (2) Alcohol use disorder, severe, dependence Current Visit: Yes Status: Acute Priority: High (3) Cannabis use disorder, mild, abuse Current Visit: Yes Status: Acute Priority: Low (4) Nicotine dependence Current Visit: Yes Status: Acute Priority: Low Hospital Course: Admission HPI: Admission note was completed by Dr. Oneill "The patient is a 60-year-old single male transferred from medicine service where he is admitted for acute alcohol intoxication. I reviewed the medical record and interviewed the patient. He presented to the ED acutely intoxicated with blood alcohol level of 388. In addition, his UDS was positive for marijuana. While he was in the ED he expressed suicidal ideation. I consulted while he was on the medicine unit. He described feelings of depression for the last 1-2 weeks since he lost housing and was temporarily laid off from work. Because the latter, he has no money to afford an apartment, motel or room and board. He shared and apartment with friends but had a "falling out" with the man who holds the lease to the apartment. He had lived at the local nursing home in the past but did not seek nursing home because he thought that the program had closed. He admitted to use of alcohol but minimized the severity of his alcohol use alleging that he only drinks beer; unlike the medical assessment where he admitted to drinking "hard liquor and several beers daily". He acknowledged that he feels depressed and has been having suicidal thoughts. I inquired about the reason for depression he replied that he is "homeless". He has no family with whom he meets enough even temporarily.He described feeling sad and having thoughts of suicide and described feelings of hopelessness, helplessness and worthlessness. He did not express clear suicidal plan or intent. He is having alcohol withdrawal symptoms including nausea, vomiting, diarrhea, sweating and tremor. He denied auditory, visual or tactile disturbances. He denied a history of suicide attempts or gestures." Hospital course: Upon admission to the unit patient was initially depressed and anxious and going through withdrawals. Patient was however directable and agreeable to commence treatment and signed adult voluntary form. Patient got along well with other patients on the unit and followed unit protocol. Patient mainly isolated on the unit and did not attend many groups. Patient was compliant with the medications and denied any side effects throughout hospital course. Patient was started on Zoloft 25 mg daily for mood/anxiety. Patient was also started on a standing dose of Librium for alcohol withdrawal which was gradually titrated down. Patient was also placed on CIWA protocol with when necessary Ativan and monit ored his vitals. Patient spoke of his stressors and engaged in individual therapy mainly. Patient was also seen by medical team for history and physical exam. Throughout the course of the hospitalization patient gradually improved with regards to mood, anxiety, sleep and became more future oriented. On the day of discharge patient denied any suicidal or homicidal ideations intent or plan denied any auditory or visual hallucinations. Patient endorsed wanting to live for his job and his family. The patient denied any access to guns or weapons. Patient denied any paranoia and did not endorse any delusions. Patient does have a significant history of substance abuse and was counseled on abstaining from all substances including alcohol and marijuana. Patient was offered however declined inpatient substance-abuse rehab. Patient declined any medications for alcohol use and declined any other community treatment options including AA meetings. Patient was also counseled on the medications and need for regular compliance and was encouraged to follow-up with their outpatient appointment for mental health and also for primary care. Mental status exam: General Appearance: Patient appears to be older than, stated age is alert, directable, and cooperative. Patient is in no acute distress and has improved hygiene and grooming. Long hair and mir. Behavior: Patient is calmly seated without any agitated behavior. Speech: Patient's speech is fluent and nonpressured. Mood/Affect: Patient reports their mood is "better", affect is congruent Suicidality/Homicidality: Patient denies having any suicidal or homicidal ideation intent or plan. Perceptions: Patient denies any auditory or visual hallucinations. Though content/process: There is no evidence of any delusional thought content and thought process is linear and goal-directed. more future oriented Memory and concentration: AOX3, grossly intact for the purposes of this session. Can spell "WORLD" backwards correctly. Judgment and insight: chronically poor, however has improved with guarded prognosis Impression: Depressive disorder unspecified, rule out substance-induced depressive disorder Alcohol use disorder severe Cannabis abuse Nicotine dependence Plan: -Continue with discharge today as patient has improved and stabilized psychiatrically and is not currently an imminent threat to himself and/or others. Patient will remain at chronically elevated risk for harm to self and/or others due to his polysubstance abuse and chronically poor insight. -Continue medications: Zoloft 25 mg daily for mood/anxiety. Librium was discontinued/tapered off. -Patient was counseled on the need for medication compliance and appropriate follow-up at mental health and also primary care for medical issues. Patient verbalized understanding and agreed. -Social work to help arrange for patient to go to the nursing home today upon discharge. Social work also to arrange for patients follow up appointments with [facility] for psychiatric care along with follow up with primary care provider. -Patient counseled on abstaining from recreational drugs and marijuana and alcohol. Was informed/educated on the adverse effects on their physical and mental health. Patient verbally agreed and understood. Patient was offered substance abuse treatment however declined at this time. -Patient was instructed to return to the hospital or seek immediate medical care if their psychiatric or medical symptoms do worsen or reoccur. Allergies Allergy/AdvReac Type Severity Reaction Status Date / Time No Known Allergies Allergy Verified 12/20/20 16:[address] Glu mg/dL 103 12/21/20 11:11 Hemoglobin A1c 5.2 % (4.0-6.0) 12/21/20 11:11 Triglycerides 95 mg/dL (<150) 12/21/20 11:11 Cholesterol 241 mg/dL (<200) H 12/21/20 11:11 LDL Cholesterol, Calc 48 mg/dL (0-99) 12/21/20 11:11 HDL Cholesterol 174 mg/dL (40-60) H 12/21/20 11:11 Vital Signs Temp 97.3 F L 12/24/20 07:08 Pulse 69 12/24/20 11:57 Resp 16 12/24/20 11:57 BP 167/82 12/24/20 11:57 Pulse Ox 99 12/24/20 07:08 Patient Condition at Discharge: Stable Plan - Discharge Summary New Discharge Prescriptions: New Sertraline [Zoloft] 25 mg PO DAILY 30 Days tab Multivitamins, Thera [Multivitamin (formulary)] 1 each PO DAILY 30 Days tab Nicotine Polacrilex [Nicorette] 2 mg BUCCAL Q4HR PRN 14 Days gum PRN Reason: Nicotine Cravings amLODIPine [Norvasc] 10 mg PO DAILY 30 Days tab Acetaminophen Tab [Tylenol] 650 mg PO Q4HR PRN tab PRN Reason: Pain/Discomfort Thiamine [Vitamin B-1] 100 mg PO DAILY 30 Days tab Continue Lisinopril [Zestril] 10 mg PO DAILY 30 Days #30 tab Discontinued Multivitamins, Thera [Multivitamin (formulary)] 1 each PO DAILY #30 tab Thiamine [Vitamin B-1] 100 mg PO DAILY #30 tab amLODIPine [Norvasc] 5 mg PO DAILY #30 tab hydrALAZINE HCL [Apresoline] 25 mg PO QID PRN tab PRN Reason: Blood Pressure - High Discharge Medication List Acetaminophen Tab [Tylenol] 650 mg PO Q4HR PRN tab 12/25/20 [Rx] Lisinopril [Zestril] 10 mg PO DAILY 30 Days #30 tab 12/25/20 [Rx] Multivitamins, Thera [Multivitamin (formulary)] 1 each PO DAILY 30 Days tab 12/25/20 [Rx] Nicotine Polacrilex [Nicorette] 2 mg BUCCAL Q4HR PRN 14 Days gum 12/25/20 [Rx] Sertraline [Zoloft] 25 mg PO DAILY 30 Days tab 12/25/20 [Rx] Thiamine [Vitamin B-1] 100 mg PO DAILY 30 Days tab 12/25/20 [Rx] amLODIPine [Norvasc] 10 mg PO DAILY 30 Days tab 12/25/20 [Rx] Follow up Appointment(s)/Referral(s): [facility] [Outside] - 12/26/20 12:30 pm (IN PERSON APPT. WITH FERNANDO) Activity/Diet/Wound Care/Special Instructions: Activity and diet as tolerated. Avoid the use of street drugs and alcohol. Take all medications as prescribed. When you are in need of refills on your medications please contact your medical provider and/or outpatient psychiatrist to have this done. Please go to scheduled outpatient appointment for aftercare treatment. If symptoms return or become worse, call the crisis line at and/or go to the nearest emergency room for evaluation. Discharge Disposition: OTHER INSTITUTION NOT DEFINED
== END 2020-12-25 11:53 | disposition other institution (70) | DRG 881 ==
LOC: 3MHU 15:22
PROVIDERS: ADMIT Psychiatry & Neurology Psychiatry; ATTEND Psychiatry & Neurology Psychiatry
DX: F32.9 Major depressive disorder, single episode, unspecified (principal); F10.24 Alcohol dependence with alcohol-induced mood disorder; F10.239 Alcohol dependence with withdrawal, unspecified; R45.851 Suicidal ideations; F12.10 Cannabis abuse, uncomplicated; F17.200 Nicotine dependence, unspecified, uncomplicated; F41.9 Anxiety disorder, unspecified; Z59.0 Homelessness; Z79.899 Other long term (current) drug therapy; Z86.73 Personal history of transient ischemic attack (TIA), and cerebral infarction without residual deficits
CPT/HCPCS: 80061; 83036

== ENCOUNTER → 2021-10-31 | Outpatient (CLI) | payer OTHER ==
--- NOTE | 2021-10-31 14:16 | US ---
EXAMINATION TYPE: US kidneys/renal and bladder DATE OF EXAM: 10/31/2021 COMPARISON: NONE CLINICAL HISTORY: R35.1 URINE RETENTION. EXAM MEASUREMENTS: Right Kidney: 10.8 x 4.2 x 5.2 cm Left Kidney: 12.3 x 5.2 x 4.9 cm Post Void Residual Volume: 52.0 mL Right Kidney: No hydronephrosis or masses seen Left Kidney: No hydronephrosis or masses seen, measures large Bladder: wnl Normal Post Void Residual: No < 50ml normal There is no evidence for hydronephrosis at this point in time. No nephrolithiasis is seen. No raleigh s are identified. The urinary bladder is anechoic. Bilateral ureteral jets are seen. IMPRESSION: Unremarkable study.
== END | disposition home or self-care (01) ==
LOC: RADUSWWP 13:25
PROVIDERS: ATTEND Family Medicine
DX: R33.9 Retention of urine, unspecified (principal)
CPT/HCPCS: 76770

== ENCOUNTER 2022-08-27 10:04 | Observation (INO) | payer BC, OTHER ==
[2022-08-27] MEDS ORDERED: ASPIRIN 81 MG PO STA (10:19)
[2022-08-27] MEDS ORDERED: NITROGLYCERIN SL TABS 0.4 MG TAB SUBLINGUAL STA (10:25)
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
[2022-08-27 10:47] LABS: Basophils % (A) 1 %; Eosinophils # (A) 0.5 k/uL (0-0.7); Eosinophils % (A) 7 %; HCT 42.8 % (39.0-53.0); HGB 15.1 gm/dL (13.0-17.5); Lymphocytes # (A) 2.1 k/uL (1.0-4.8); Lymphocytes % (A) 32 %; MCHC 35.2 g/dL (31.0-37.0); MCV 90.8 fL (80.0-100.0); Mean Platelet Volume 9.4; Monocytes # (A) 0.3 k/uL (0-1.0); Monocytes % (A) 5 %; Neutrophils # (A) 3.7 k/uL (1.3-7.7); Neutrophils % (A) 55 %; Platelet Count 226 k/uL (150-450); RBC 4.72 m/uL (4.30-5.90); WBC 6.8 k/uL (3.8-10.6)
[2022-08-27 10:55] LABS: ALT 17 U/L (4-49); AST 34 U/L (17-59); African American GFR (CKD) >90 (>60 ml/min/1.73 sqM); Albumin 4.8 g/dL (3.5-5.0); Alkaline Phosphatase 52 U/L (38-126); Anion Gap 8 mmol/L; Blood Urea Nitrogen 14 mg/dL (9-20); Calcium 9.3 mg/dL (8.4-10.2); Carbon Dioxide 26 mmol/L (22-30); Chloride 107 mmol/L (98-107); Glucose 89 mg/dL (74-99); Magnesium 1.6 mg/dL (1.6-2.3); Non-African American GFR(CKD) >90 (>60 ml/min/1.73 sqM); Potassium 4.3 mmol/L (3.5-5.1); Sodium 141 mmol/L (137-145); Total Bilirubin 0.5 mg/dL (0.2-1.3); Total Protein 7.6 g/dL (6.3-8.2)
--- NOTE | 2022-08-27 10:56 | XR ---
EXAMINATION TYPE: XR chest 2V DATE OF EXAM: 08/27/2022 COMPARISON: 08/20/2020 TECHNIQUE: PA and lateral views submitted. HISTORY: Chest pain FINDINGS: The lungs are clear and there is no pneumothorax, pleural effusion, or focal pneumonia. Calcified g ranuloma left upper lobe with diffuse hyperinflation. Hypertrophic and degenerative changes of the sp ine. IMPRESSION: 1. No acute process. Correlate for COPD.
[2022-08-27 11:00] LABS: INR 0.9 (<1.2); Partial Thromboplastin Time 24.2 sec (22.0-30.0); Prothrombin Time 9.7 sec (9.0-12.0)
[2022-08-27] MEDS ORDERED: NITROGLYCERIN SL TABS 0.4 MG TAB SUBLINGUAL PRN (11:55)
[2022-08-27] MEDS: IBUPROFEN 800 MG TAB PO PRN (18:09)
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
[2022-08-28] MEDS ORDERED: LEVOTHYROXINE 75 MCG TAB PO SCH (06:30)
[2022-08-28 08:15] VITALS: RESP 17
[2022-08-28] MEDS ORDERED: LOSARTAN 25 MG TAB PO SCH (09:00)
[2022-08-28] MEDS ORDERED: ASPIRIN 325 MG TAB PO SCH (09:00)
[2022-08-28] MEDS: IBUPROFEN 800 MG TAB PO PRN ×2 (09:00→15:39)
[2022-08-28] MEDS ORDERED: ATORVASTATIN 40 MG TAB PO SCH (09:00)
--- NOTE | 2022-08-28 09:01 | CA ---
Transthoracic Echo Report Name: Rafael Menchaca Age: 62 Gender: M : 1960 Exam Date: 08/28/2022 07:48 Exam Location: [facility] Ht (in): 60 Wt (lb): 160 Ordering Physician: Davian Herrera Attending/Referring Phys: [id number], Javier Pole Shaver Helper Kiah Crenshaw RDCS Procedure CPT: Indications: Chest Pain Cardiac Hx: Technical Quality: Contrast 1: Total Dose (mL): Contrast 2: Total Dose (mL): MEASUREMENTS (Male / Female) Normal Values 2D ECHO LV Diastolic Diameter PLAX 4.3 cm 4.2 - 5.9 / 3.9 - 5.3 cm LV Systolic Diameter PLAX 2.4 cm IVS Diastolic Thickness 1.2 cm 0.6 - 1.0 / 0.6 - 0.9 cm LVPW Diastolic Thickness 1.5 cm 0.6 - 1.0 / 0.6 - 0.9 cm LV Relative Wall Thickness 0.6 RV Internal Dim ED PLAX 2.1 cm LA Systolic Diameter LX 2.9 cm 3.0 - 4.0 / 2.7 - 3.8 cm LA Volume 41.5 cm??? 18 - 58 / 22 - 52 cm??? M-MODE Aortic Root Diameter MM 2.8 cm LA Systolic Diameter MM 3.0 cm LA Ao Ratio MM 1.1 MV E Point Septal Separation 0.4 cm AV Cusp Separation MM 2.0 cm DOPPLER MV Area PHT 3.8 cm??? Mitral E Point Velocity 52.5 cm/s Mitral A Point Velocity 74.8 cm/s Mitral E to A Ratio 0.7 MV Deceleration Time 199.8 ms MV E' Velocity 5.5 cm/s Mitral E to MV E' Ratio 9.5 FINDINGS Left Ventricle Mildly increased septal wall thickness. Left ventricular cavity size normal. Left ventricular ejection fraction is estimated at 55 %. Right Ventricle Right Atrium Normal right atrial size. Left Atrium Normal left atrial size. Mitral Valve Structurally normal mitral valve. Mitral valve thickened. Mild mitral regurgitation. Aortic Valve Trileaflet aortic valve. Tricuspid Valve Structurally normal tricuspid valve. Mild tricuspid regurgitation. Pulmonic Valve Structurally normal pulmonic valve. Pericardium Normal pericardium. Aorta Normal size aortic root and proximal ascending aorta. CONCLUSIONS Normal LV systolic function Mild mitral regurgitation Previewed by: Dr. Milton Torres MD (Electronically Signed) Final Date: 28 August 2022 09:00
[2022-08-28 09:50] LABS: Chol/HDL Ratio 3.01 Ratio; LDL Cholesterol,Calculated 77.9 mg/dL (0.0-131.0); VLDL Calculation 19.04 mg/dL (5.00-40.00)
--- NOTE | 2022-08-28 10:38 | P.CRDCN ---
History of Present Illness Consult date: 08/28/22 Consult reason: chest pain History of present illness: History of present illness: This is a 62-year-old male patient with past medical history of hypertension, hyperlipidemia, hypothyroidism, TIA 7-8 years ago. 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 Patient states that he had onset of chest pain maybe a couple weeks ago and had checked his blood pressure at [facility] and it came back high. He did not do any follow-up at that time and he seemed not have much trouble until Wednesday at work, he was feeling much worse and he had his blood pressure checked and it was 198/105. He was seen by his PCP and started on losartan on Wednesday. He took one tablet that evening and another one on morning. He also purchased a blood pressure monitor and his blood pressure readings following administration of losartan was 200/100. He was still having a little chest pain on the left side and came into [facility] emergency center for evaluation. Patient is a smoker of a half a pack per day since he was 22 years of age. He uses marijuana at least once a month. He quit alcohol use one year ago. Patient also states he's had some episodes over the past couple weeks of feeling lightheaded and anxious. Patient is currently complaining of a headache this morning. EKG is in sinus bradycardia Echocardiogramrevealed normal LV systolic function, mild mitral regurgitation CBC and CMP unremarkable. Troponin is negative 3. Triglycerides 95, ch olesterol 145, HDL 48. Chest x-ray reveals no acute process Review Of Systems: At the time of my evaluation Constitutional: No fever, no chills. No weakness, fatigue or lethargy. EENT: Reports headache. No dizziness. Lungs: No shortness of breath, cough, no sputum production. No wheezing. Cardiovascular: No chest pain, no lower extremity edema. No palpitations. No paroxysmal nocturnal dyspnea. No orthopnea. No lightheadedness or dizziness. No syncopal episodes. Abdominal: No abdominal pain. No nausea, vomiting. No diarrhea. No constipation. No bloody or tarry stools.. No loss of appetite. Genitourinary: No dysuria.. No urinary retention. Musculoskeletal: No myalgias. No muscle weakness, no gait dysfunction, no frequent falls. No back pain. No neck pain. Integumentary: No wounds. No rash or pruritus. No unusual bruising. Neurologic: No aphasia. No facial droop. No change in mentation. No head injury. No headache. No paralysis. No paresthesia. Psychiatric: No depression. No anxiety. Endocrine: No abnormal blood sugars. Physical examination: Gen: This is a 62-year-old male. He is resting in bed and appears to be comfortable and in no acute distress. VS: reviewed. Blood pressure 127/71, heart rate 52 HEENT: Head is atraumatic, normocephalic. Pupils equal, round. Sclerae is anicteric. NECK: Supple. No JVD. LUNGS: Clear to auscultation. No wheezes or rhonchi. No intercostal retractions. HEART: Regular rate and rhythm. No murmur. ABDOMEN: Soft. No masses. No tenderness. EXTREMITIES: No pedal edema. No calf tenderness. NEUROLOGICAL: Patient is awake, alert and oriented x3. Assessment: Uncontrolled hypertension, newly diagnosed Chest pain, acute coronary syndrome has been ruled out Hyperlipidemia Hypothyroidism History of TIA Plan: Obtain exercise stress echocardiogram If stress echocardiogram is within normal limits, patient is cleared for discharge from cardiology. Thank you kindly for this consultation. Nurse practitioner note has been reviewed, I agree with documented findings and plan of care. Patient was seen and examined. Past Medical History Past Medical History: CVA/TIA, Hypertension Additional Past Medical History / Comment(s): CVA/TIA in 2020, per patient he reports it was a "mini stroke" History of Any Multi-Drug Resistant Organisms: None Reported Past Surgical History: No Surgical Hx Reported Additional Past Surgical History / Comment(s): RT HAND MIDDLE FINGER SX- BROKE KNUCKLE at the age of 20 y/o Past Anesthesia/Blood Transfusion Reactions: No Reported Reaction Past Psychological History: Depression Smoking Status: Current every day smoker Past Alcohol Use History: None Reported Additional Past Alcohol Use History / Comment(s): Pt. admits to drinking approximately 4 24oz beers per day. Last drink was 12/19/20. He also admits to occasional marijuana use. UDS + THC, Serum ETOH 388. Past Drug Use History: Marijuana Additional Drug Use History / Comment(s): Pt. admits to drinking approximately 4 24oz beers per day. Last drink was 12/19/20. He also admits to occasional mar ijuana use. UDS + THC, Serum ETOH 3 - Past Family History Brother(s) Family Medical History: Myocardial Infarction ([place]) Additional Family Medical History / Comment(s): Brother had an [place] at the age of 6262 years old. He is still alive at the age of 6565 years old. -1 brother 62 years old-No significant medical hx. -1 brother 55 years old-No significant medical hx. Father Additional Family Medical History / Comment(s): Dad at the age of 8686 years old. Mother Additional Family Medical History / Comment(s): Mother passed at the age of 9393 years old. Sister(s) Family Medical History: Cancer Additional Family Medical History / Comment(s): FROM BREAST CANCER in her 50's. Medications and Allergies Home Medications Medication Instructions Recorded Confirmed Type Atorvastatin Calcium [Lipitor] 40 mg PO DAILY 08/27/22 08/27/22 History Ibuprofen [Motrin] 800 mg PO QID PRN 08/27/22 08/27/22 History Levothyroxine Sodium [Synthroid] 150 mcg PO DAILY 08/27/22 08/27/22 History Losartan Potassium [Cozaar] 25 mg PO DAILY 08/27/22 08/27/22 History Allergies Allergy/AdvReac Type Severity Reaction Status Date / Time No Known Allergies Allergy Verified 08/27/22 11:11 Physical Exam Vitals: Vital Signs Temp Pulse Pulse Resp BP BP Pulse Ox 08/28/22 02:36 97.4 F L 52 L 18 127/71 95 08/27/22 20:00 97.9 F 48 L 17 138/69 97 08/27/22 17:33 56 L 18 150/92 98 08/27/22 15:33 60 160/95 94 L 08/27/22 13:19 60 18 152/90 98 08/27/22 11:53 71 16 152/90 96 08/27/22 10:36 57 L 16 156/91 99 08/27/22 10:11 98.8 F 72 18 179/88 100 Intake and Output 08/27/22 08/28/22 08/28/22 22:59 06:59 14:59 Intake Total 240 Balance 240 Intake: Oral 240 Other: # Voids 2 2 Weight 72.575 kg Results 08/27/22 10:34 08/27/22 10:34 Cardiac Enzymes 08/27/22 08/27/22 08/27/22 Range/Units 10:34 10:34 13:51 AST 34 (17-59) U/L Troponin I <0.012 <0.012 (0.000-0.034) ng/mL 08/27/22 Range/Units 16:15 AST (17-59) U/L Troponin I <0.012 (0.000-0.034) ng/mL Coagulation 08/27/22 Range/Units 10:34 PT 9.7 (9.0-12.0) sec APTT 24.2 (22.0-30.0) sec CBC 08/27/22 Range/Units 10:34 WBC 6.8 (3.8-10.6) k/uL RBC 4.72 (4.30-5.90) m/uL Hgb 15.1 (13.0-17.5) gm/dL Hct 42.8 (39.0-53.0) % Plt Count 226 (150-450) k/uL Comprehensive Metabolic Panel 08/27/22 Range/Units 10:34 Sodium 141 (137-145) mmol/L Potassium 4.3 (3.5-5.1) mmol/L Chloride 107 (98-107) mmol/L Carbon Dioxide 26 (22-30) mmol/L BUN 14 (9-20) mg/dL Creatinine 0.87 (0.66-1.25) mg/dL Glucose 89 (74-99) mg/dL Calcium 9.3 (8.4-10.2) mg/dL AST 34 (17-59) U/L ALT 17 (4-49) U/L Alkaline Phosphatase 52 (38-126) U/L Total Protein 7.6 (6.3-8.2) g/dL Albumin 4.8 (3.5-5.0) g/dL Current Medications Generic Name Dose Route Start Last Admin Trade Name Freq PRN Reason Stop Dose Admin Aspirin 325 mg 08/28/22 09:00 Aspirin 325 Mg Tab PO DAILY [facility] Atorvastatin Calcium 40 mg 08/28/22 09:00 Atorvastatin 40 Mg Tab PO DAILY [facility] Ibuprofen 800 mg 08/27/22 11:56 08/27/22 18:09 Ibuprofen 800 Mg Tab PO 800 mg QID PRN Administration Pain Levothyroxine Sodium 150 mcg 08/28/22 06:30 08/28/22 05:53 Levothyroxine 75 Mcg Tab PO 150 mcg DAILY@0630 JENNIFER Administration Losartan Potassium 25 mg 08/28/22 09:00 Losartan 25 Mg Tab PO DAILY JENNIFER Nitroglycerin 0.4 mg 08/27/22 11:55 Nitroglycerin Sl Tabs 0.4 Mg Tab SUBLINGUAL Q5M PRN Chest Pain Intake and Output 08/27/22 08/28/22 08/28/22 22:59 06:59 14:59 Intake Total 240 Balance 240 Intake: Oral 240 Other: # Voids 2 2 Weight 72.575 kg 08/27/22 10:34 08/27/22 10:34
--- NOTE | 2022-08-28 10:47 | CA ---
Stress Echo Report Rafael Menchaca Age: 62 Gender: M : 1960 Exam Date: 08/28/2022 09:59 Exam Location: [place] [facility] Ht (in): 70 Wt (lb): 160 Ordering Physician: Ching Blanco Referring Physician: KACIE DING,, Hydraulic Controls Technician: Mignon Vega RDCS Technologist Procedure CPT: Indication: CP ICD-9 Codes: Rhythm: Patient History: Hyperlipidemia, Atypical angina, Smoker Cardiac Medications: Medications in past 24 hours: Contrast: Stress Results Protocol: Danial Total dose(mL): Exercise Duration (min:sec): [address] Depression (mm): Angina Score: Joyce Score: METS: 9.1 Resting HR: 79 Resting BP: 150 / 88 Peak HR: 139 Peak BP: 200 / 90 Max Predicted HR: 160 87 % Max Predicted HR Target HR: 136 Double Product: 53260 Stress Summary: BP Response: Reason for Termination: Reached target heart rate Cardiac Symptoms: ECG Analysis Resting ECG: Normal sinus rhythm normal axis normal intervals Stress ECG: Patient exercised on Danial protocol for 8 minutes achievin 9 METs 85% of predicted maximal heart rate without chest pain or diagnostic ST segment depression Arrhythmia: Echo Analysis Resting Echo: Normal left ventricular size wall motion systolic function Peak Echo Analysis: Normal hyperdynamic response of all segments of myocardium noted MEASUREMENTS (Male/Female) Normal Values CONCLUSIONS Good exercise tolerance Negative stress test by EKG criteria Negative stress echo Dr. Milton Torres MD (Electronically Signed) Final Date: 28 August 2022 10:46
[2022-08-28] MEDS ORDERED: LOSARTAN 25 MG TAB PO STA (11:03)
[2022-08-28 14:57] VITALS: BP 130/49; PULSE 77; TEMP 98
--- NOTE | 2022-08-29 02:26 | DS ---
DISCHARGE SUMMARY CHIEF COMPLAINT: Chest pain. HISTORY OF PRESENT ILLNESS AND PHYSICAL EXAMINATION: Details of this man's history and physical can be found in the initial workup. LABORATORY STUDIES: While he was in the hospital, he had laboratory studies, details of which can be found in the laboratory section of his chart. COURSE IN THE HOSPITAL: After admission, he was placed on bedrest, started on intravenous fluids and had serial EKGs and enzymes. He was seen by Cardiology and he was taken for a stress study and it was normal. It was felt that he could be discharged and he will go home on his usual activity, diet, and medications, and follow up in a few days. He reports that his blood pressure has been very high lately and this will be addressed. FINAL DIAGNOSES: 1. Chest pain. 2. Essential hypertension. OPERATIONS: None. CONSULTATION: None. He is improved. JADYN / DMITRIY: [id number] /
[2022-08-29] MEDS ORDERED: METOPROLOL SUCCINATE (ER) 50 MG TAB.ER.24H PO SCH (09:00)
[2022-08-29] MEDS ORDERED: LOSARTAN 50 MG TAB PO SCH ×2 (09:00)
== END 2022-08-28 18:38 ==
LOC: EC 10:04 → 6NMEDSUR 12:08
PROVIDERS: ADMIT Family Medicine; ATTEND Family Medicine
DX: R07.9 Chest pain, unspecified (principal); I10 Essential (primary) hypertension; F32.A Depression, unspecified; E78.5 Hyperlipidemia, unspecified; E03.9 Hypothyroidism, unspecified; F17.200 Nicotine dependence, unspecified, uncomplicated; Z86.73 Personal history of transient ischemic attack (TIA), and cerebral infarction without residual deficits; Z79.890 Hormone replacement therapy; Z79.899 Other long term (current) drug therapy
CPT/HCPCS: 99285; 36415; 93306; 93351; 80061; 80053; 83735; 84484; 85025; 85610; 85730; 71046; G0378 ×2

== ENCOUNTER → 2024-04-20 | Outpatient (CLI) | payer OTHER ==
--- NOTE | 2024-05-16 14:34 | US ---
Site ID [facility] Rafael Lin ID [id number] Age/Gender: 63Y, O Order # N/A Procedure US abdomen complete Date 04/20/2024 8:17:00 AM EXAMINATION TYPE: US abdomen complete DATE OF EXAM: 05/07/2024 COMPARISON: None, please note PACS Production downtime occurred during the radiologist interpretation of these images with limited priors/reports. CLINICAL INDICATION: 63 year old with history of constipation. TECHNIQUE: Multiple sonographic images of the abdomen are obtained. FINDINGS: EXAM MEASUREMENTS: Liver Length: 15.8 cm Gallbladder Wall: 0.2 cm CBD: 0.2 cm Spleen: 0.5 cm Right Kidney: 11.5 x 3.8 x 4.7 cm Left Kidney: 10.5 x 4.8 x 4.5 cm CAR INSPECTOR NOTES: Pancreas: wnl Liver: wnl Gallbladder: wnl Evidence for sonographic Matthew's sign: No CBD: wnl Spleen: wnl Right Kidney: wnl Left Kidney: wnl Upper IVC: wnl Abd Aorta: wnl The liver is homogenous. The intrahepatic portion of the IVC and proximal abdominal aorta are within normal limits. There is no evidence of cholelithiasis. Common bile duct is unremarkable. The visu alized portions of the pancreas are homogenous. The spleen is unremarkable. Kidneys are symmetric a nd free of hydronephrosis. No renal lesions are seen. IMPRESSION: No ultrasound evidence for an acute process.
== END | disposition home or self-care (01) ==
LOC: RADUSWWP 12:00
PROVIDERS: ATTEND Family Medicine
DX: R63.4 Abnormal weight loss (principal)
CPT/HCPCS: 76700

== ENCOUNTER → 2024-06-26 | Outpatient (CLI) | payer OTHER ==
[2024-06-26 19:11] LABS: Basophils # (A) 0.02 X 10*3/uL (0.00-0.10); Basophils % (A) 0.3 %; Eosinophils # (A) 0.21 X 10*3/uL (0.04-0.35); Eosinophils % (A) 2.9 %; HGB 11.5 g/dL (13.0-17.0); Lymphocytes # (A) 2.48 X 10*3/uL (0.90-5.00); Lymphocytes % (A) 33.7 %; MCH 30.2 pg (27.0-32.0); MCHC 33.8 g/dL (32.0-37.0); MCV 89.2 FL (80.0-97.0); Mean Platelet Volume 11.1 FL (9.5-12.2); Monocytes # (A) 0.49 X 10*3/uL (0.20-1.00); Monocytes % (A) 6.7 %; NRBC Per 100 WBC 0 X 10*3/uL (0.00-0.01); Neutrophils # (A) 4.13 X 10*3/uL (1.80-7.70); Platelet Count 265 X 10*3/uL (140-440); RBC 3.81 X 10*6/uL (4.40-5.60); RDW 12.3 % (11.5-14.5); WBC 7.36 X 10*3/uL (4.50-10.00)
[2024-06-26 19:18] LABS: ALT 10 U/L (10-49); AST 21 U/L (14-35); Albumin 4.4 g/dL (3.8-4.9); Alkaline Phosphatase 79 U/L (41-126); BUN/Creat Ratio 6.73 Ratio (12.00-20.00); Blood Urea Nitrogen 7.4 mg/dL (9.0-27.0); Calcium 9.2 mg/dL (8.7-10.3); Carbon Dioxide 23.9 mmol/L (21.6-31.8); Chloride 100 mmol/L (96-109); Globulin 2.2 g/dL (1.6-3.3); Glucose 102 mg/dL (70-110); Potassium 4.7 mmol/L (3.5-5.5); Sodium 134 mmol/L (135-145); Total Bilirubin 0.2 mg/dL (0.3-1.2); Total Protein 6.6 g/dL (6.2-8.2)
[2024-06-26 20:15] LABS: Gliadin AB IgA, Deaminated Negative (Negative); Gliadin AB IgA, Unit 1.3 U/mL; Gliadin AB IgG, Deaminated Negative (Negative); Gliadin AB IgG, Unit <0.4 U/mL
== END | disposition home or self-care (01) ==
LOC: LABWHC1 13:41
PROVIDERS: ATTEND Nurse Practitioner Family
CPT/HCPCS: 36415; 80053; 81596; 83516; 85025

== ENCOUNTER 2024-07-21 08:50 | Day surgery (SDC) | payer OTHER ==
[2024-07-19 15:05] VITALS: BMI 20.7
[2024-07-21] MEDS: IV FLUID CONTINUATION 1,000 ML IV ONE (09:16)
[2024-07-21 09:26] VITALS: TEMP 97.3
[2024-07-21] MEDS: LACTATED RINGERS 1,000 ML IV SCH (09:36)
[2024-07-21] MEDS ORDERED: PROPOFOL 10 MG/ML 20 ML VIAL IV ONE (09:42)
[2024-07-21] MEDS ORDERED: LIDOCAINE 1% INJ 10MG/ML (20 ML MDV) ONE (09:42)
--- NOTE | 2024-07-21 10:03 | P.PCN ---
Date of Procedure: 07/21/24 Procedure(s) Performed: Brief history: Patient is a pleasant 64-year-old white male scheduled for an elective upper endoscopy as well as colonoscopy as a part of evaluation of abdominal pain, intermittent nausea vomiting, change in bowel habits and progressive weight loss of 20 pounds in the last 6 months duration Procedure performed: Esophagogastroduodenoscopy with biopsy Colonoscopy Preoperative diagnosis: Abdominal pain/intermittent nausea vomiting Changes bowel habits Progressive weight loss Anesthesia: [facility] [place] Procedure: After informed consent was obtained from the patient was brought into the endoscopy unit and IV sedation was administered by anesthesia under continuous monitoring. Initially upper endoscopy was done. The Olympus GF 160 video endoscope was inserted inserted into the mouth and esophagus intubated without any difficulty and was gradually advanced into the stomach and duodenum and carefully examined. The bulb and second part of the duodenum appeared normal. Apices were done from the duodenum to rule out celiac disease. The scope was then withdrawn into the stomach adequately insufflated with air and upon careful examination the antrum mild gastritis and biopsies were done from this area. Mucosa of the body, cardia and fundus appeared normal. The scope was then withdrawn into the esophagus. The GE junction was located at 40 cm to the incisors. It appeared regular with no erythema erosions or ulcerations. Rest of the esophagus appeared normal. Patient tolerated the procedure well. At this time the patient continued to remain sedation. Initial digital rectal examination was normal. Olympus CF 160 video colonoscope was then inserted into the rectum and gradually advanced to the cecum without any difficulty. Careful examination was performed as the scope was gradually being withdrawn. The prep was excellent. The cecum, ascending colon, transverse colon, descending colon, sigmoid colon and rectum appeared normal. Retroflexion was performed in the rectum and small internal hemorrhoids were noted. Patient tolerated the procedure well. Impression: 1. Upper endoscopy revealed mild antral gastritis but no evidence of esophagitis or peptic ulcer disease 2. Colonoscopy revealed scattered sigmoid diverticulosis but no evidence of colorectal neoplasia upper Recommendations: Findings of this examination were discussed with the patient as well as his family. He was advised to follow with the biopsy results. Recommend repeat screening colonoscopy in 10 years.
[2024-07-21 10:10] VITALS: RESP 16
[2024-07-21 10:27] VITALS: BP 126/78; PULSE 60
== END 2024-07-21 10:50 | disposition home or self-care (01) ==
LOC: ORWHC2ENDO 08:50
PROVIDERS: ATTEND Internal Medicine Gastroenterology
DX: K29.50 Unspecified chronic gastritis without bleeding (principal); K57.30 Diverticulosis of large intestine without perforation or abscess without bleeding; I10 Essential (primary) hypertension; E78.5 Hyperlipidemia, unspecified; I67.9 Cerebrovascular disease, unspecified; Z79.890 Hormone replacement therapy; Z79.02 Long term (current) use of antithrombotics/antiplatelets; Z79.899 Other long term (current) drug therapy
CPT/HCPCS: 88305; 45378; 43239; J2003; J2704